=== PATIENT | female | born 2000 | race Caucasian/White ===

== ENCOUNTER 2019-05-07 08:36 | Day surgery (SDC) | payer OTHER ==
[~2019-05-07] VITALS: Ht 167.6 cm; Wt 64.9 kg
[~2019-05-07 08:36] MED LIST: BUPIVACAINE/EPIN 0.5% 30 ML VIAL As Ordered ONE; CYMB1CAP4 PO; LIDOCAINE W/EPINEPHRINE 1% 20ML VIAL As Ordered ONE; LR 1,000 ML IV ONE; YAZ1TAB PO
[2019-05-07] MEDS ORDERED: propofoL 200 MG/20 ML VIAL As Ordered ONE (10:03)
[2019-05-07] MEDS ORDERED: ROCURONIUM BROMIDE 50 MG/5 ML VIAL As Ordered ONE (10:03)
[2019-05-07] MEDS ORDERED: LIDOCAINE 2% INJ 100 MG/5 ML SDV (FOR ANES.) As Ordered ONE (10:03)
[2019-05-07] MEDS ORDERED: dexameTHASONE 4 MG/ML 1ML VIAL (J1100) As Ordered ONE (10:04)
[2019-05-07] MEDS ORDERED: ONDANSETRON 4MG/2ML VIAL (J2405) As Ordered ONE (10:04)
[2019-05-07] MEDS ORDERED: fentaNYL 100 MCG/2 ML INJECTION (J3010) As Ordered ONE (10:10)
[2019-05-07] MEDS ORDERED: MIDAZOLAM INJ 2 MG/2 ML VIAL (J2250) As Ordered ONE (10:10)
[2019-05-07] MEDS ORDERED: SUGAMMADEX SODIUM 500 MG/5 ML VIAL (BRIDION) As Ordered ONE (10:52)
[2019-05-07] MEDS: PERCOCET 5MG/325MG TAB PO PRN ×2 (11:38→12:05)
[2019-05-07] MEDS: fentaNYL 100 MCG/2 ML INJECTION (J3010) IV PRN ×4 (11:54→12:10)
[2019-05-07] MEDS ORDERED: LR 1,000 ML IV SCH ×2 (12:00→13:00)
[2019-05-07] MEDS ORDERED: METOCLOPRAMIDE INJ 10MG/2ML VIAL (J2765) IV PRN (12:00)
[2019-05-07] MEDS ORDERED: ONDANSETRON 4MG/2ML VIAL (J2405) IV PRN (12:00)
[2019-05-07] MEDS ORDERED: ACETAMINOPH W/CODEINE #3 TAB UD PO PRN (13:00)
[2019-05-07] MEDS ORDERED: KETOROLAC 30 MG/ML VIAL (J1885) IV ONE (13:00)
[2019-05-07] MEDS ORDERED: KETOROLAC 30 MG/ML VIAL (J1885) As Ordered ONE (13:03)
[2019-05-07 14:35] VITALS: BP 117/74
--- NOTE | 2019-05-07 21:48 | RO ---
DATE OF PROCEDURE: 05/07/2019 PREPROCEDURE DIAGNOSIS: Chronic tonsillitis. POSTPROCEDURE DIAGNOSIS: Chronic tonsillitis. OPERATIVE PROCEDURE: Tonsillectomy. SURGEON: Nate Gates MD SENIOR SOFTWARE MANAGER: ANESTHESIA: General. DESCRIPTION OF PROCEDURE: Under general anesthesia with the patient intubated, a Machuca-Neeraj mouth gag was inserted. The tonsillar area was infiltrated with lidocaine, epinephrine, and Marcaine. Using cautery I dissected the tonsil free from its bed on both sides. The base and apex and other areas were cauterized. The patient tolerated the procedure well. No blood loss. The patient extubated and transferred to the recovery room in excellent condition.
== END 2019-05-07 14:35 | disposition home or self-care (01) ==
LOC: M SDC 08:36
PROVIDERS: ATTEND Otolaryngology
DX: J35.01 Chronic tonsillitis (principal); F41.9 Anxiety disorder, unspecified; F32.9 Major depressive disorder, single episode, unspecified; Z79.899 Other long term (current) drug therapy; Z88.8 Allergy status to other drugs, medicaments and biological substances
CPT/HCPCS: 42826; 81025; 88302; J1100; J1885; J2250; J2405; J3010

== ENCOUNTER 2020-09-16 16:25 | Outpatient (CLI) | payer OTHER ==
[~2020-09-16] VITALS: Ht 167.6 cm; Wt 80.0 kg
[~2020-09-16 16:25] MED LIST changes: -BUPIVACAINE/EPIN 0.5% 30 ML VIAL As Ordered ONE; -LIDOCAINE W/EPINEPHRINE 1% 20ML VIAL As Ordered ONE; -LR 1,000 ML IV ONE
[2020-09-16] MEDS ORDERED: MAGN400C PO (16:48)
[2020-09-16] MEDS ORDERED: PRENTAB9 PO (16:48)
[2020-09-16 16:54] VITALS: BP 115/69
[2020-09-16 17:06] VITALS: BP 115/73
[2020-09-16 18:35] LABS: CREATININE,RANDOM URINE < 13.0 MG/DL; TOTAL PROTEIN,RANDOM URINE 6.3 MG/DL (0.0-12.0)
[2020-09-16 18:47] LABS: HEMATOCRIT 36.5 % (36.0-47.0); HEMOGLOBIN 12.1 g/dl (12.0-15.5); MEAN CORPUSCULAR HEMOGLOBIN 29.4 pg (27.0-33.0); MEAN CORPUSCULAR HGB CONC 33.2 g/dl (32.0-36.5); MEAN CORPUSCULAR VOLUME 88.6 fl (80.0-96.0); PLATELET COUNT, AUTOMATED 299 10^3/uL (150-450); RED BLOOD COUNT 4.12 10^6/uL (4.00-5.40); WHITE BLOOD COUNT 8.9 10^3/uL (4.0-10.0)
[2020-09-16 18:51] VITALS: BP 117/75
[2020-09-16 19:23] LABS: ALT/SGPT 13 U/L (12-78); BILIRUBIN,TOTAL 0.8 MG/DL (0.2-1.0); CREATININE FOR GFR 0.48 MG/DL (0.55-1.30); GLOMERULAR FILTRATION RATE > 60.0 (>60); LDH LACTATE DEHYDROGENASE 224 U/L (84-246); URIC ACID 2.6 MG/DL (2.6-6.0)
--- NOTE | 2020-09-16 19:47 | IPNPDOC ---
Text Note Date of Service The patient was seen on 09/16/20. NOTE Vital Signs Label Value Date Time Pulse 101 09/16/20 1851 Blood Pressure Assessment 117/75 (89) 09/16/20 1851 Source Automatic Cuff (NIBP) Blood Pressure Assessment 115/73 (87) 09/16/20 1706 Source Automatic Cuff (NIBP) Pulse 108 09/16/20 1706 Pulse 107 09/16/20 1654 Respiratory Rate 16 bpm 09/16/20 1654 Blood Pressure Assessment 115/69 (84) 09/16/20 1654 Source Automatic Cuff (NIBP) Patient Temperature 97.9 degrees F 09/16/20 1654 Temperature Source Temporal 09/16/20 1654 Item Value Date Time Urine Random Creatinine < 13.0 MG/DL 09/16/20 1742 Urine Random Total Protein 6.3 MG/DL 09/16/20 1742 Item Value Date Time Lactate Dehydrogenase 224 U/L 09/16/20 1836 Alanine Aminotransferase (ALT/SGPT) 13 U/L 09/16/20 1836 Aspartate Amino Transf (AST/SGOT) 14 U/L 09/16/20 1836 Total Bilirubin 0.8 MG/DL 09/16/20 1836 Uric Acid 2.6 MG/DL 09/16/20 1836 Glomerular Filtration Rate > 60.0 09/16/20 1836 Creatinine 0.48 MG/DL L 09/16/20 1836 Item Value Date Time Red Blood Count 4.12 10^6/uL 09/16/20 1836 White Blood Count 8.9 10^3/uL 09/16/20 1836 Hemoglobin 12.1 g/dl 09/16/20 1836 Hematocrit 36.5 % 09/16/20 1836 Mean Corpuscular Volume 88.6 fl 09/16/20 1836 Mean Corpuscular Hemoglobin 29.4 pg 09/16/20 1836 Mean Corpuscular Hemoglobin Concent 33.2 g/dl 09/16/20 1836 Red Cell Distribution Width 12.8 % 09/16/20 1836 Platelet Count 299 10^3/uL 09/16/20 1836 1900 HOURS PATIENT 20 YO CAME TO TRIAGE WITH MIRAD OF COMPLAINTS . RIGHT RIB PAIN ONGOING, ANXIETY DEPRESSION PICA CRAVING, GERD . PATIENT FOR ASSESSMENT RE ISSUES . LMP 02/08/20 EDC BY EARLY US 9 WEEKS 3 DAYS EDC 08/29/21. REVIEW RISK FACTORS HSV DEPRESSION /ANXIETY ON CYMBALTA PLAN NO ACUTE DISTESS BP NORMAL RIGHT RIB PAIN PISSIBLY PRESSURE INJURY GB DISEASE RECOMMEND US GB . PLANNED DISCHARGE WITH PRECAUTIONS VS,Fishbone, I+O VS, Fishbone, I+O Item Value Date Time Urine Random Creatinine < 13.0 MG/DL 09/16/20 1742 Urine Random Total Protein 6.3 MG/DL 09/16/20 1742 Laboratory Tests 09/16/20 18:36 Vital Signs Date Time Temp Pulse Resp B/P (MAP) Pulse Ox O2 Delivery O2 Flow Rate FiO2 09/16/20 18:51 101 117/75 (89) 09/16/20 16:54 97.9 16 Scar Monreal MD Sep 16, 2020 19:40
== END 2020-09-16 19:40 | disposition home or self-care (01) ==
LOC: M LDO 16:25
PROVIDERS: ATTEND Obstetrics & Gynecology
DX: O26.891 Other specified pregnancy related conditions, first trimester (principal); Z3A.09 9 weeks gestation of pregnancy; R07.81 Pleurodynia; O99.341 Other mental disorders complicating pregnancy, first trimester; F41.9 Anxiety disorder, unspecified; F32.9 Major depressive disorder, single episode, unspecified; O99.611 Diseases of the digestive system complicating pregnancy, first trimester; K21.9 Gastro-esophageal reflux disease without esophagitis; O98.511 Other viral diseases complicating pregnancy, first trimester; B00.82 Herpes simplex myelitis; Z88.8 Allergy status to other drugs, medicaments and biological substances; Z79.899 Other long term (current) drug therapy
CPT/HCPCS: 36415; 59025; 82247; 82565; 82570; 83615; 84156; 84450; 84460; 84550; 85027; G0378; G0463

== ENCOUNTER 2020-11-01 20:51 | Inpatient (IN) | payer OTHER ==
[~2020-11-01] VITALS: Ht 165.1 cm; Wt 87.3 kg
[~2020-11-01 20:51] MED LIST changes: +MAGN400C PO; +PRENTAB9 PO
[2020-11-01 21:14] VITALS: BP 137/87
[2020-11-01] MEDS ORDERED: VALA1TAB5 PO (21:20)
[2020-11-01] MEDS ORDERED: TUMS500C PO (21:20)
[2020-11-01] MEDS ORDERED: ACET-907 PO (21:20)
[2020-11-01 22:15] VITALS: BP 137/94
[2020-11-01 22:16] VITALS: BP 147/99
[2020-11-01 22:23] VITALS: BP 142/96
[2020-11-01 22:52] LABS: HEMATOCRIT 35.6 % (36.0-47.0); HEMOGLOBIN 11.9 g/dl (12.0-15.5); MEAN CORPUSCULAR HEMOGLOBIN 29.5 pg (27.0-33.0); MEAN CORPUSCULAR HGB CONC 33.4 g/dl (32.0-36.5); MEAN CORPUSCULAR VOLUME 88.3 fl (80.0-96.0); PLATELET COUNT, AUTOMATED 217 10^3/uL (150-450); RED BLOOD COUNT 4.03 10^6/uL (4.00-5.40); WHITE BLOOD COUNT 7.8 10^3/uL (4.0-10.0)
[2020-11-01 23:19] LABS: TOTAL PROTEIN,RANDOM URINE 349.5 MG/DL (0.0-12.0)
[2020-11-01 23:26] LABS: ALBUMIN 2.3 GM/DL (3.2-5.2); ALT/SGPT 20 U/L (12-78); BILIRUBIN,TOTAL 0.6 MG/DL (0.2-1.0); BLOOD UREA NITROGEN 9 MG/DL (7-18); CALCIUM LEVEL 8.9 MG/DL (8.5-10.1); CARBON DIOXIDE LEVEL 21 MEQ/L (21-32); CHLORIDE LEVEL 107 MEQ/L (98-107); CREATININE FOR GFR 0.43 MG/DL (0.55-1.30); GLOMERULAR FILTRATION RATE > 60.0 (>60); GLUCOSE, FASTING 83 MG/DL (70-100); POTASSIUM SERUM 4.3 MEQ/L (3.5-5.1); SODIUM LEVEL 136 MEQ/L (136-145); TOTAL PROTEIN 5.7 GM/DL (6.4-8.2)
[2020-11-01] MEDS ORDERED: LIDOCAINE 1% MDV 20ML VIAL INFIL PRN (23:35)
[2020-11-01] MEDS ORDERED: TRANEXAMIC ACID INJection 1,000 MG in NS 100 ML IV PRN (23:35)
[2020-11-01] MEDS ORDERED: CARBOPROST TROMETHAMINE 250 MCG/ML AMP IM PRN (23:35)
[2020-11-01] MEDS ORDERED: OXYTOCIN DRIP 30 UNITS in IV 1 EA IV PRN (23:35)
[2020-11-01] MEDS ORDERED: LR 1,000 ML IV SCH (23:35)
[2020-11-01] MEDS ORDERED: OXYTOCIN DRIP 30 UNITS in IV 1 EA IV SCH (23:35)
--- NOTE | 2020-11-01 23:57 | HPEPDOC ---
Obstetrical History & Physical General Date of Admission Nov 01, 2020 at 23:26 History of Present Illness Quincy is a 20yo at 38w1d by LMP c/w 9wk US with ADRIANO 29Aug admitted from triage after presenting with complaint of decreased movement. Pt states she does daily kick counts and noted that she only had 7 movements in a 2hr timeframe. She states that movement increased since arriving to triage, however during evaluation was noted to have an elevated BP. Labs ordered and UPC returned at 2.8. Pt denies any symptoms of preeclampsia including LONGO,vision changes, RUQ pain or dyspnea. She is also without OB complaint. She does note occasional contractions but denies LOF, VB or discharge. +GFM. Information Provided By: Patient Care Care: Good Care Dating Final EDC: Nov 14, 2020 Final EDC by: LMP Antepartum Course Diagnos(e)s 1. 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 Depression/anxiety 3. Gallstones Past Medical History Past Obstetrical History : Past Obstetrical History: Primgravida Past Medical History Medical History HSV1 with hx of genital lesions Depression/anxiety Surgical History: Tonsilectomy (2019), Other (distal first metatarsal osteotom. Lump removal - R axillae) Family History Significant Family History: Hypertension Family History HTN - mother, father, MGM, MGF, PGM Social History Social history denies tobacco, etOH or illicit drug use Marital Status: Family situation: Spouse/partner home Psychosocial History: Anxiety, Depression * Smoker: non-smoker Alcohol: Denies Drugs: denies Abuse Violence Screening Have you been hit/kicked/slapp: No Have you been sexually assault: No Imunizations Tdap status: declined Allergies Coded Allergies: nitrofurantoin (Verified Allergy, Severe, rash, skin swelling, throat swelling, hives, 04/30/19) phenazopyridine (Verified Allergy, Severe, hives, rash, swelling of skin and throat, 04/30/19) Medications Scheduled Acetaminophen (Tylenol) 325 Mg Tablet, 325 MG PO PRN Duloxetine HCl (Cymbalta) 20 Mg Capsule.dr, 40 MG PO DAILY Magnesium Oxide (Magnesium) 400 Mg Capsule, 400 MG PO DAILY for constipation No.137/Iron/Folic Acd ( Vitamin Tablet) 1 Each Tablet, 1 TAB PO DAILY Valacyclovir HCl (Valacyclovir) 1,000 Mg Tablet, 1 TAB PO DAILY Miscellaneous Medications Calcium Carbonate (Tums) 200 Mg Tab.chew, 500 MG PO Physical Examination Physical Examination GENERAL: Alert and oriented times three. BREAST: . ABDOMEN: Gravid and non-tender to touch. FETUS: Is vertex (VTX) by sterile vaginal examination (SVE), HEART RATE: Regular rate LUNGS: Normal work of breathing EXTREMITIES: No edema. No clonus. Deep tendon reflexes (DTRs) . Vital Signs/I&O Vital Signs Date Time Temp Pulse Resp B/P (MAP) Pulse Ox O2 Delivery O2 Flow Rate FiO2 11/01/20 22:23 95 16 142/96 (111) 11/01/20 21:14 98.2 Laboratory Data 24H LABS Laboratory Tests 2 11/01/20 21:48: Urine Random Creatinine 123.0, Urine Random Total Protein 349.5H 11/01/20 22:43: Nucleated Red Blood Cells % (auto) 0.0, Anion Gap 8, Glomerular Filtration Rate > 60.0, Calcium Level 8.9, Total Bilirubin 0.6, Aspartate Amino Transf (AST/SGOT) 24, Alanine Aminotransferase (ALT/SGPT) 20, Alkaline Phosphatase 308H, Total Protein 5.7L, Albumin 2.3L, Albumin/Globulin Ratio 0.7L CBC/BMP Laboratory Tests 11/01/20 22:43 Pertinent Laboratoy Data Blood Type: A+ RBC Antibody Screen: Negative HIV: Negative Hepatitis B: Negative Rapid Plasma Reagin: Nonreactive Rubella: Immune Varicella: Immune Chlamydia/Gonorrhea: Negative Group B Streptococcus: Negative Quad Screen Test: Negative Cystic Fibrosis: Negative Glucose Tolerance Test: 146 (3hr normal) Anatomy Ultrasound Placenta Location: Posterior Normal Anatomy: Yes Placenta Previa: No Vaginal Examination Dilation: 1cm (SVE performed - no active lesions noted) Effacement: 50% Station: -3 Cervical Position: Posterior Presentation: Cephalic presentation Assessment Heart Rate (FHR): 130 Variability: Moderate Accelerations: Positive Decelerations: None Tocometer Contractions: Yes Frequency: every 1-3 min. Assessment/Plan Assessment Quincy is a 20-year-old G1 para (P)0 at 38+1 weeks by LMP c/w 9wk US with ADRIANO Oct. Presents to Labor and Delivery (L&D) with decreased movement. NST reactive, however on evaluation pt noted to have mild range BP. Labs obtained with UPC ratio at 2.8 - meeting criteria for preeclampsia. Plan Admit and orient. Spiritual Advisor and consent. Diet: clears. Group B Streptococcus (GBS) negative. Speculum exam completed with no active lesions noted. Labs and intravenous (IV) per unit protocol. Counseled on cervical ripening methods, Pitocin and induction of labor (IOL). DLFB inserted without difficulty. Lactated Ringers (LR) Anticipate [normal spontaneous delivery ()]. C-S as appropriate. Labor and Delivery Counseling Counseled on risks/benefits of balloon insertion (ie: infection, inadvertent AROM), and reviewed common medication utilized during induction (cytotec, pitocin). Reviewed reasons for possible operative vs. delivery as well as risks/benefits associated with these procedures to include injury, infection, and possible need for blood transfusion in the event of signficant hemorrhage. Patient and both present during counseling and agree to proceed. All questions answered. CONNIE QUINTERO M.D. Nov 01, 2020 23:39
[2020-11-02] VITALS (60 sets, daily range): BP systolic 116–191; BP diastolic 57–108
[2020-11-02] MEDS ORDERED: PROMETHAZINE INJ 25 MG/ML VIAL (J2550) IV PRN (00:55)
[2020-11-02] MEDS ORDERED: ACETAMINOPHEN TAB 650MG DOSE (2X325MG) PO PRN (00:55)
[2020-11-02] MEDS ORDERED: BUTORPHANOL 2 MG/ML INJ (J0595) IV PRN (00:55)
[2020-11-02] MEDS ORDERED: LR 1,000 ML IV ONE (05:20)
--- NOTE | 2020-11-02 05:53 | IPNPDOC ---
Obstetrical Progress Note Date of Service Nov 02, 2020 Subjective 20yo at 38w2d by LMP c/w 9wk US with ADRIANO 29Aug. Requesting epidural for pain. [place] small gush of fluid around 0530 and light meconium noted by RN. Pt otherwise without complaint and denies LONGO, vision changes, RUQ pain or dyspnea Objective Vital Signs Date Time Temp Pulse Resp B/P (MAP) Pulse Ox O2 Delivery O2 Flow Rate FiO2 11/02/20 05:02 99.1 107 16 135/83 (100) Assessment Heart Rate (FHR): 130 Variability: Moderate Accelerations: Positive Decelerations: Late (occasional late deceleration) Heart Rate Tracing: Category I (overall cat I with intermittent episodes of Cat 2) Sterile Vaginal Examination Dilation: 4 cm Effacement (%): 70% Station: -2 Cervical Consistency: Soft Cervical Position: Posterior Postion/Presentation: Cephalic presentation Assessment and Plan Status: Reassuring Group B Streptococcus: Negative Anticipate: Vaginal Delivery Additional Comments 20yo now at 38w2d. SROM with scant fluid around 0530 this AM, light mec onium noted. Pt receiving bolus for epidural. Continue to monitor closely and anticipate vaginal delivery. BP normotensive to mild range and patient asymptomatic. Consider mag if severe features of preE noted. CONNIE QUINTERO M.D. Nov 02, 2020 05:53
[2020-11-02] MEDS ORDERED: FENTANYL 2MCG/ML ROPIVACAINE 0.2% IN 0.9% NACL 100ML IVBAG As Ordered ONE ×2 (05:56→14:28)
[2020-11-02] MEDS ORDERED: valACYclovir HCL 500 MG TAB PO ONE (06:30)
[2020-11-02] MEDS ORDERED: diphenhydrAMINE 50MG/ML VIAL (J1200) IV PRN (08:50)
[2020-11-02] MEDS ORDERED: REFRIGERATOR IV KEYS XX PRN (08:50)
[2020-11-02] MEDS ORDERED: ONDANSETRON 4MG/2ML VIAL IV PRN (08:50)
[2020-11-02] MEDS ORDERED: EPIDURAL/PCA KEYS XX PRN (08:50)
[2020-11-02] MEDS ORDERED: LACTATED RINGER'S 1000 ML IV PRN (08:50)
[2020-11-02] MEDS ORDERED: NALOXONE INJ 0.4MG/1ML VIAL (J2310 PER 1MG) IV PRN (08:50)
[2020-11-02] MEDS ORDERED: ePHEDrine SULFATE 25 MG/5 ML(5MG/ML) SYRINGE IV PRN (08:50)
[2020-11-02] MEDS ORDERED: EPIDURAL COMMENT XX SCH (08:50)
[2020-11-02] MEDS: FENTANYL/ROPIVACAINE/NACL BAG 100 ML EPIDURAL SCH ×2 (08:53→14:34)
--- NOTE | 2020-11-02 11:34 | IPNPDOC ---
Obstetrical Progress Note Date of Service Nov 02, 2020 Subjective 20 yo at 38w2d with ADRIANO of 14 NOV 2020 admitted for pre-eclampsia. She denies headache, chest pain RUQ pain, and visual changes. She is comfortable with her epidural and has been able to get some rest. She has supportive family at the bedside. Objective Vital Signs Date Time Temp Pulse Resp B/P (MAP) Pulse Ox O2 Delivery O2 Flow Rate FiO2 11/02/20 06:56 103 16 124/70 (88) 11/02/20 06:42 98.9 Pitocin at 10 mu/min Assessment Heart Rate (FHR): 125 Variability: Moderate Accelerations: Present Decelerations: Variable Tocometer Contractions: Yes Frequency: irregular (every 3-5 minutes) Sterile Vaginal Examination Dilation: 6 cm Effacement (%): 70% Station: 0 Cervical Consistency: Soft Cervical Position: Middle Postion/Presentation: Cephalic presentation Assessment and Plan Age: 20 : 1 Term: 0 Pre-term: 0 Abortions: 0 Livin Weeks & Days 38w2d Status: Reassuring Group B Streptococcus: Negative Anticipate: Vaginal Delivery BRENDA ALEXANDER CNM Nov 02, 2020 11:30
--- NOTE | 2020-11-02 12:20 | IPNPDOC ---
Obstetrical Progress Note Date of Service Nov 02, 2020 Subjective 20 yo at 38w2d with ADRIANO of 14 NOV 2020 admitted for pre-eclampsia. She remains comfortable with her epidural. She has no complaints at this time. She has supportive family at the bedside. Discussed placing internal monitors with patient and her spouse due to with deep variables to 90s with contractions with return to baseline. Objective Vital Signs Date Time Temp Pulse Resp B/P (MAP) Pulse Ox O2 Delivery O2 Flow Rate FiO2 11/02/20 06:56 103 16 124/70 (88) 11/02/20 06:42 98.9 FSE and IUPC placed without difficulty Assessment Heart Rate (FHR): 135 Variability: Moderate Accelerations: Present Decelerations: Variable Tocometer Contractions: Yes (every 2-5 minutes) Frequency: regular Sterile Vaginal Examination Dilation: 6 cm Effacement (%): 70% Station: 0 Postion/Presentation: Cephalic presentation Assessment and Plan Age: 20 : 1 Term: 0 Pre-term: 0 Abortions: 0 Livin Weeks & Days 38w2d Status: Reassuring Group B Streptococcus: Negative Anticipate: Vaginal Delivery BRENDA ALEXANDER CNM Nov 02, 2020 12:07
[2020-11-02] MEDS ORDERED: MAG Sulf (L&D) 4 GM/100 ML 4 GM in IV 1 EA IV ONE (15:05)
[2020-11-02] MEDS: MAG Sulf (OBGYN) 20GM/500ML 20,000 MG in IV 1 EA IV SCH (16:03)
[2020-11-02] MEDS ORDERED: LABETALOL 100MG/20ML VIAL IV STA (16:07)
[2020-11-02] MEDS ORDERED: ANUSOL HC CREAM 30GM TOP PRN (16:25)
[2020-11-02] MEDS ORDERED: PROMETHAZINE 25 MG TAB PO PRN (16:25)
[2020-11-02] MEDS ORDERED: DIBUCAINE 1% OINTMENT 30GM TOP PRN (16:25)
[2020-11-02] MEDS ORDERED: ACETAMINOPHEN 500 MG TAB PO PRN (16:25)
[2020-11-02] MEDS ORDERED: MEASLES,MUMPS,RUBELLA VACCINE INJ (MMR-II) (90707) SC SCH (16:25)
[2020-11-02] MEDS ORDERED: IBUPROFEN 800 MG TAB PO PRN (16:25)
[2020-11-02] MEDS ORDERED: METHYLERGONOVINE MALEATE 0.2 MG TAB PO PRN (16:25)
--- NOTE | 2020-11-02 16:41 | DNPDOC ---
[facility] Delivery Note Delivery Note Date of the procedure: 02 NOV 2020 Preoperative diagnosis: 1. 20 y/o at 38w2d 2. Induction of labor for pre-eclampsia 3. GBS negative 4. A positive 5. 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 Meconium Postoperative diagnosis: 1. 20 y/o G1 now P1 at 38w2d 2. Induction of labor for pre-eclampsia 3. GBS negative 4. A positive 5. 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 Meconium 7. Second degree perineal laceration Procedure: Delivering Provider: JORJE Hilario CNM, [facility] Risk And Assurance Manager Back-up: Dr. Sarkis Vasquez Anesthesia: Epidural EBL: 400 ml Specimens: None Findings: Live male infant weighing 8 lb 10 oz, 3910 grams with Apgars of 8 and 9 at 1 and 5 minutes respectively. Complications: Pre-eclampsia Details of the procedure: The patient presented complaining of decreased movement and was found to be pre-eclamptic. Patient was 1 cm dilated and was then admitted to L&D for induction of labor. Labor progressed with Pitocin and membranes were ruptured spontaneously for clear fluid.. The patient progressed to fully dilated and entered the second stage of labor, at which point she began to push over an intact perineum. The head was then delivered. The nuchal cord was not noted. The rest of the was delivered. The was placed on maternal abdomen and the cord was doubly clamped and cut. Cord blood was not collected and a 3 vessel cord was noted. Manual exploration of the uterus was not performed. Uterine tone was firm. Perineum was inspected and a second degree perineal laceration was found. This was repaired with 2-0 chromic. Cervical exam was normal. Rectal exam was not noted. Sponge, instrument, and needle counts were correct. The patient tolerated the procedure well and is stable in recovery. Note was written and electronically signed by: JORJE Hilario CNM, [facility] BRENDA ALEXANDER CNM Nov 02, 2020 16:35
[2020-11-02 17:03] LABS: HEMATOCRIT 36.6 % (36.0-47.0); HEMOGLOBIN 12.1 g/dl (12.0-15.5); MEAN CORPUSCULAR HEMOGLOBIN 29.2 pg (27.0-33.0); MEAN CORPUSCULAR HGB CONC 33.1 g/dl (32.0-36.5); MEAN CORPUSCULAR VOLUME 88.4 fl (80.0-96.0); PLATELET COUNT, AUTOMATED 197 10^3/uL (150-450); RED BLOOD COUNT 4.14 10^6/uL (4.00-5.40); WHITE BLOOD COUNT 17.2 10^3/uL (4.0-10.0)
[2020-11-02 17:29] LABS: ALT/SGPT 17 U/L (12-78); BILIRUBIN,TOTAL 1.1 MG/DL (0.2-1.0); CREATININE FOR GFR 0.51 MG/DL (0.55-1.30); GLOMERULAR FILTRATION RATE > 60.0 (>60); LDH LACTATE DEHYDROGENASE 277 U/L (84-246); URIC ACID 5.2 MG/DL (2.6-6.0)
[2020-11-02] MEDS: DULoxetine 30 MG CAP (CYMBALTA) PO SCH (21:08)
[2020-11-02] MEDS: DOCUSATE SODIUM 100MG CAPSULE PO SCH (21:08)
[2020-11-02] MEDS: IBUPROFEN 600MG TAB PO PRN (23:12)
[2020-11-03] VITALS (64 sets, daily range): BP systolic 97–174; BP diastolic 54–113
[2020-11-03] MEDS ORDERED: MORPHINE 4 MG/ML 1ML VIAL/SYRINGE (J2270) As Ordered ONE (02:21)
[2020-11-03] MEDS ORDERED: OXYTOCIN 30 UNITS IN 0.9% NaCl 500ML IV BAG (J2590) As Ordered ONE (02:21)
[2020-11-03] MEDS ORDERED: ceFAZolin 2 GM/D5W 50 ML IV BAG (J0690 PER 500MG) As Ordered ONE (02:30)
[2020-11-03] MEDS ORDERED: CARBOPROST TROMETHAMINE 250 MCG/ML AMP As Ordered ONE (02:38)
[2020-11-03 02:53] LABS: HEMATOCRIT 29.8 % (36.0-47.0); MEAN CORPUSCULAR HEMOGLOBIN 29.7 pg (27.0-33.0); MEAN CORPUSCULAR HGB CONC 33.9 g/dl (32.0-36.5); MEAN CORPUSCULAR VOLUME 87.6 fl (80.0-96.0); PLATELET COUNT, AUTOMATED 211 10^3/uL (150-450); WHITE BLOOD COUNT 12.7 10^3/uL (4.0-10.0)
[2020-11-03 02:55] LABS: HEMOGLOBIN 10.1 g/dl (12.0-15.5)
[2020-11-03] MEDS ORDERED: diphenhydrAMINE 50MG/ML VIAL (J1200) IV STA (02:59)
[2020-11-03 03:03] LABS: INR 1.02; PROTHROMBIN TIME 13.8 SECONDS (12.7-14.5)
[2020-11-03 03:04] LABS: PARTIAL THROMBOPLASTIN TIME 32.3 SECONDS (25.9-37.0)
--- NOTE | 2020-11-03 03:16 | IPNPDOC ---
Progress Note Date of Service: Nov 03, 2020 Day#: 1 Progress Note SUBJECT:20 y/o at 38w2d PPD1 S/P complicated by Pre e with severe features who has now been on magnesium for 12 hrs. I was called to her room this mornind for increased bleeding. on exam, patient had a lot of large clots inside the uterus, which were evacuated manually. PPH was diagnosed. she was given 2 doses of hemobate, got another 30u of pitocin, 1g of txa, 1000mcg of cytotec. Bakri ballon was also placed with 300ml. 2g of ancef was also given and will continue q8hrs while bakri is in place. patient was type and crossed for 2u. coags were also obtained. 4mg of morphine was given during the exam and bakri balloon placement. patient was also noted to have persistent severe range BP and was given 40mg of Iv Labetalol. OBJECTIVE: VITAL SIGNS: 163/100 Alert and oriented times three. Breath sounds clear to auscultation. Heart rate: tachy to 120 Abdomen: Fundus firm at U lochia, bakri balloon in place ASSESSMENT: :20 y/o at 38w2d PPD1 S/P complicated by Pre e with severe features who has now been on magnesium for 12 hrs. will transfuse 2u prbc, Coags are Normal with fibrinogen 497. . PLAN: 1. Continue mag for 24hrs, due off at 4pm on 11/03 2. Keep bakri balloon for 12hrs, then start removing 5oml every hr starting at 3pm ON 11/03 3. Encourage breast feeding and ambulation. 4. 2g of ancef q8hrs, while bakri in place 6. Continue to monitor for s/s of anemia or worsening pre e. 7. GIve IV Antihypertensive PRN VS, I&O, 24H, Fishbone Vital Signs/I&O Vital Signs Date Time Temp Pulse Resp B/P (MAP) Pulse Ox O2 Delivery O2 Flow Rate FiO2 11/03/20 01:02 114 16 133/64 (87) 11/03/20 00:02 98.8 I&O- Last 24 Hours up to 6 AM 11/03/20 05:59 Intake Total 3973.9 ml Output Total 2650 ml Balance 1323.9 ml Laboratory Data 24H LABS Laboratory Tests 2 11/02/20 16:52: Nucleated Red Blood Cells % (auto) 0.0, Glomerular Filtration Rate > 60.0, Uric Acid 5.2, Total Bilirubin 1.1#H, Aspartate Amino Transf (AST/SGOT) 21, Alanine Aminotransferase (ALT/SGPT) 17, Lactate Dehydrogenase 277H 11/03/20 02:45: Nucleated Red Blood Cells % (auto) 0.0 CBC/BMP Laboratory Tests 11/02/20 16:52 11/03/20 02:45 DICKSON LEWIS MD Nov 03, 2020 03:16
[2020-11-03 03:19] LABS: ALBUMIN 1.9 GM/DL (3.2-5.2); ALT/SGPT 15 U/L (12-78); BILIRUBIN,TOTAL 0.8 MG/DL (0.2-1.0); BLOOD UREA NITROGEN 6 MG/DL (7-18); CALCIUM LEVEL 7.6 MG/DL (8.5-10.1); CARBON DIOXIDE LEVEL 24 MEQ/L (21-32); CHLORIDE LEVEL 111 MEQ/L (98-107); CREATININE FOR GFR 0.57 MG/DL (0.55-1.30); GLOMERULAR FILTRATION RATE > 60.0 (>60); GLUCOSE, FASTING 110 MG/DL (70-100); SODIUM LEVEL 141 MEQ/L (136-145); TOTAL PROTEIN 4.7 GM/DL (6.4-8.2)
[2020-11-03] MEDS ORDERED: CARBOPROST TROMETHAMINE 250 MCG/ML AMP IM PRN (03:30)
[2020-11-03] MEDS ORDERED: OXYTOCIN INJ 10 UNITS/ML VIAL (J2590) IV ONE (03:30)
[2020-11-03] MEDS ORDERED: TRANEXAMIC ACID INJection 1,000 MG in D5W 100 ML IV ONE (03:45)
[2020-11-03] MEDS ORDERED: MORPHINE 4 MG/ML 1ML VIAL/SYRINGE (J2270) IV ONE (03:45)
[2020-11-03] MEDS ORDERED: ceFAZolin SOD 2 GM in IV 1 EA IV SCH (04:00)
[2020-11-03] MEDS ORDERED: ACETAMINOPHEN *IV* 1,000 MG in IV 1 EA IV ONE (04:00)
[2020-11-03] MEDS ORDERED: LABETALOL 100MG/20ML VIAL As Ordered ONE (04:18)
[2020-11-03] MEDS: PRENATAL VITAMINS CHEWABLE TABLET PO SCH (08:54)
[2020-11-03] MEDS: LABETALOL 100MG TAB PO SCH ×2 (08:57→21:33)
[2020-11-03] MEDS ORDERED: LOMOTIL 2.5MG/0.025MG TABLET PO SCH ×2 (09:00)
[2020-11-03] MEDS: ceFAZolin SOD 2 GM in IV 1 EA IV SCH ×2 (11:27→18:25)
[2020-11-03] MEDS: LR 1,000 ML IV SCH ×2 (11:27→22:27)
[2020-11-03] MEDS: MAG Sulf (OBGYN) 20GM/500ML 20,000 MG in IV 1 EA IV SCH ×3 (13:17→18:16)
[2020-11-03 15:51] LABS: HEMATOCRIT 34.5 % (36.0-47.0); HEMOGLOBIN 11.8 g/dl (12.0-15.5); MEAN CORPUSCULAR HEMOGLOBIN 29.9 pg (27.0-33.0); MEAN CORPUSCULAR HGB CONC 34.2 g/dl (32.0-36.5); MEAN CORPUSCULAR VOLUME 87.3 fl (80.0-96.0); PLATELET COUNT, AUTOMATED 201 10^3/uL (150-450); RED BLOOD COUNT 3.95 10^6/uL (4.00-5.40); WHITE BLOOD COUNT 15.9 10^3/uL (4.0-10.0)
[2020-11-03 16:12] LABS: ALT/SGPT 19 U/L (12-78); BILIRUBIN,TOTAL 0.9 MG/DL (0.2-1.0); CREATININE FOR GFR 0.47 MG/DL (0.55-1.30); GLOMERULAR FILTRATION RATE > 60.0 (>60); LDH LACTATE DEHYDROGENASE 402 U/L (84-246); URIC ACID 5.6 MG/DL (2.6-6.0)
--- NOTE | 2020-11-03 18:43 | IPNPDOC ---
Text Note Date of Service The patient was seen on 11/03/20. NOTE Item Value Date Time Creatinine 0.47 MG/DL L 11/03/20 1537 Glomerular Filtration Rate > 60.0 11/03/20 1537 Uric Acid 5.6 MG/DL 11/03/20 1537 Total Bilirubin 0.9 MG/DL 11/03/20 1537 Aspartate Amino Transf (AST/SGOT) 28 U/L 11/03/20 1537 Alanine Aminotransferase (ALT/SGPT) 19 U/L 11/03/20 1537 Lactate Dehydrogenase 402 U/L H 11/03/20 1537 Albumin/Globulin Ratio 0.7 L 11/03/20 0245 Albumin 1.9 GM/DL L 11/03/20 0245 Total Protein 4.7 GM/DL L 11/03/20 0245 Alkaline Phosphatase 218 U/L H 11/03/20 0245 Alanine Aminotransferase (ALT/SGPT) 15 U/L 11/03/20 0245 Aspartate Amino Transf (AST/SGOT) 24 U/L 11/03/20 0245 Total Bilirubin 0.8 MG/DL 11/03/20 0245 Calcium Level 7.6 MG/DL L 11/03/20 0245 Fasting Glucose 110 MG/DL H 11/03/20 0245 Creatinine 0.57 MG/DL 11/03/20 0245 Blood Urea Nitrogen 6 MG/DL L 11/03/20 0245 Anion Gap 6 MEQ/L L 11/03/20 0245 Carbon Dioxide Level 24 MEQ/L 11/03/20 0245 Chloride Level 111 MEQ/L H 11/03/20 0245 Sodium Level 141 MEQ/L 11/03/20 0245 Potassium Level 4.0 MEQ/L 11/03/20 0245 Sodium Level 136 MEQ/L 11/01/20 2243 Potassium Level 4.3 MEQ/L 11/01/20 2243 Chloride Level 107 MEQ/L 11/01/20 2243 Carbon Dioxide Level 21 MEQ/L 11/01/203 Anion Gap 8 MEQ/L 11/01/20 2243 Blood Urea Nitrogen 9 MG/DL 11/01/20 2243 Creatinine 0.43 MG/DL L 11/01/20 2243 Glomerular Filtration Rate > 60.0 11/01/20 2243 Fasting Glucose 83 MG/DL 11/01/20 2243 Calcium Level 8.9 MG/DL 11/01/202242 Total Bilirubin 0.6 MG/DL 11/01/202242 Aspartate Amino Transf (AST/SGOT) 24 U/L 11/01/202242 Alanine Aminotransferase (ALT/SGPT) 20 U/L 11/01/202242 Alkaline Phosphatase 308 U/L H 11/01/202242 Total Protein 5.7 GM/DL L 11/01/202242 Albumin 2.3 GM/DL L 11/01/202242 Albumin/Globulin Ratio 0.7 L 11/01/202242 Vital Signs Label Value Date Time Blood Pressure Assessment 134/102 (113) 11/03/20 0325 Source Automatic Cuff (NIBP) Blood Pressure Assessment 134/102 11/03/20 0324 Blood Pressure Assessment 125/93 (104) 11/03/20 0317 Source Automatic Cuff (NIBP) Blood Pressure Assessment 169/107 (127) 11/03/20 0307 Source Automatic Cuff (NIBP) Blood Pressure Assessment 174/104 (127) 11/03/20 0257 Source Automatic Cuff (NIBP) Blood Pressure Assessment 163/100 (121) 11/03/20 0247 Source Automatic Cuff (NIBP) Blood Pressure Assessment 156/102 (120) 11/03/20 0230 Source Automatic Cuff (NIBP) Blood Pressure Assessment 142/96 (111) 11/03/20 0224 Source Automatic Cuff (NIBP) Blood Pressure Assessment 161/79 (106) 11/03/20 0215 Source Automatic Cuff (NIBP) Blood Pressure Assessment 165/90 (115) 11/03/20 0202 Source Automatic Cuff (NIBP) Blood Pressure Assessment 133/64 (87) 11/03/20 0102 Source Automatic Cuff (NIBP) Blood Pressure Assessment 136/79 (98) 11/03/20 0002 Source Automatic Cuff (NIBP) Blood Pressure Assessment 140/90 (107) 11/02/20 2306 Source Automatic Cuff (NIBP) Blood Pressure Assessment 145/86 (105) 11/02/202201 Source Automatic Cuff (NIBP) Blood Pressure Assessment 137/75 (95) 11/02/202116 Source Automatic Cuff (NIBP) Blood Pressure Assessment 137/75 (95) 11/02/202116 Blood Pressure Assessment 141/89 (106) 11/02/202001 Blood Pressure Assessment 141/89 (106) 11/02/20 2002 Source Automatic Cuff (NIBP) Blood Pressure Assessment 148/90 (109) 11/02/20 1902 Blood Pressure Assessment 148/90 (109) 11/02/20 1902 Source Automatic Cuff (NIBP) Blood Pressure Assessment 129/69 (89) 11/02/20 1801 Source Automatic Cuff (NIBP) Blood Pressure Assessment 141/75 (97) 11/02/20 1722 Source Automatic Cuff (NIBP) Blood Pressure Assessment 142/88 (106) 11/02/20 1639 Source Automatic Cuff (NIBP) Blood Pressure Assessment 144/90 (108) 11/02/20 1629 Source Automatic Cuff (NIBP) Blood Pressure Assessment 168/94 11/02/20 1625 Blood Pressure Assessment 168/94 (118) 11/02/20 1615 Source Automatic Cuff (NIBP) Blood Pressure Assessment 162/93 (116) 11/02/20 1605 Source Automatic Cuff (NIBP) Blood Pressure Assessment 161/108 (125) 11/02/20 1600 Source Automatic Cuff (NIBP) Blood Pressure Assessment 139/74 (95) 11/02/20 1544 Source Automatic Cuff (NIBP) Blood Pressure Assessment 139/73 (95) 11/02/20 1541 Source Automatic Cuff (NIBP) Blood Pressure Assessment 147/84 (105) 11/02/20 1525 Source Automatic Cuff (NIBP) Blood Pressure Assessment 142/89 (106) 11/02/20 1452 Source Automatic Cuff (NIBP) Blood Pressure Assessment 191/105 (133) 11/02/20 1446 Source Automatic Cuff (NIBP) Blood Pressure Assessment 175/99 (124) 11/02/20 1442 Source Automatic Cuff (NIBP) Blood Pressure Assessment 143/98 (113) 11/02/20 1359 Source Automatic Cuff (NIBP) Blood Pressure Assessment 172/107 (128) 11/02/20 1429 Source Automatic Cuff (NIBP) Blood Pressure Assessment 134/73 (93) 11/02/20 1328 Source Automatic Cuff (NIBP) Blood Pressure Assessment 147/79 (101) 11/02/20 1259 Source Automatic Cuff (NIBP) Blood Pressure Assessment 134/68 (90) 11/02/20 1229 Source Automatic Cuff (NIBP) Blood Pressure Assessment 141/72 (95) 11/02/20 1159 Source Automatic Cuff (NIBP) Blood Pressure Assessment 130/80 (97) 11/02/20 1129 Source Automatic Cuff (NIBP) Blood Pressure Assessment 141/69 (93) 11/02/20 1058 Source Automatic Cuff (NIBP) Blood Pressure Assessment 125/64 (84) 11/02/20 1029 Source Automatic Cuff (NIBP) Blood Pressure Assessment 142/61 (88) 11/02/20 0958 Source Automatic Cuff (NIBP) Blood Pressure Assessment 121/59 (79) 11/02/20 0929 Source Automatic Cuff (NIBP) Blood Pressure Assessment 116/57 (76) 11/02/20 0859 Source Automatic Cuff (NIBP) Blood Pressure Assessment 116/63 (80) 11/02/20 0828 Source Automatic Cuff (NIBP) Blood Pressure Assessment 120/73 (89) 11/02/20 0758 Source Automatic Cuff (NIBP) Blood Pressure Assessment 124/74 (91) 11/02/20 0741 Source Automatic Cuff (NIBP) Blood Pressure Assessment 129/74 (92) 11/02/20 0737 Source Automatic Cuff (NIBP) Blood Pressure Assessment 128/68 (88) 11/02/20 0732 Source Automatic Cuff (NIBP) Item Value Date Time White Blood Count 15.9 10^3/uL H 11/03/20 1537 Red Blood Count 3.95 10^6/uL L 11/03/20 1537 Hemoglobin 11.8 g/dl L 11/03/20 1537 Hematocrit 34.5 % L 11/03/20 1537 Mean Corpuscular Volume 87.3 fl 11/03/20 1537 Mean Corpuscular Hemoglobin 29.9 pg 11/03/20 1537 Mean Corpuscular Hemoglobin Concent 34.2 g/dl 11/03/20 1537 Red Cell Distribution Width 14.4 % 11/03/20 1537 Platelet Count 201 10^3/uL 11/03/20 1537 Platelet Count 211 10^3/uL 11/03/20 0245 Red Cell Distribution Width 14.0 % 11/03/20 0245 Mean Corpuscular Hemoglobin Concent 33.9 g/dl 11/03/20 0245 Mean Corpuscular Hemoglobin 29.7 pg 11/03/20 0245 Mean Corpuscular Volume 87.6 fl 11/03/20 0245 Hematocrit 29.8 % L 11/03/20 0245 Hemoglobin 10.1 g/dl L # 11/03/20 0245 Red Blood Count 3.40 10^6/uL L 11/03/20 0245 White Blood Count 12.7 10^3/uL H 11/03/20 0245 White Blood Count 17.2 10^3/uL H 11/02/20 1652 Red Blood Count 4.14 10^6/uL 11/02/20 1652 Hemoglobin 12.1 g/dl 11/02/20 1652 Hematocrit 36.6 % 11/02/20 1652 Mean Corpuscular Volume 88.4 fl 11/02/20 1652 Mean Corpuscular Hemoglobin 29.2 pg 11/02/20 1652 Mean Corpuscular Hemoglobin Concent 33.1 g/dl 11/02/20 1652 Red Cell Distribution Width 13.9 % 11/02/20 1652 Platelet Count 197 10^3/uL 11/02/20 1652 Platelet Count 217 10^3/uL 11/01/20 2243 Red Cell Distribution Width 13.7 % 11/01/20 2243 Mean Corpuscular Hemoglobin Concent 33.4 g/dl 11/01/20 2243 Mean Corpuscular Hemoglobin 29.5 pg 11/01/20 2243 Mean Corpuscular Volume 88.3 fl 11/01/20 2243 Hematocrit 35.6 % L 11/01/20 2243 Hemoglobin 11.9 g/dl L 11/01/20 2243 Red Blood Count 4.03 10^6/uL 11/01/20 2243 White Blood Count 7.8 10^3/uL 11/01/20 2243 11/03/20 1800 hr review status post deliver . 20 yo 38.1weeks admitted for decreased movement and srom meconium stained. history precipitate delivery and associated severe range blood pressure and grade 3 pph with whole regimen of medication. presently patient stable blood pressure, minimal blood from bakri balloon, review pedal edema to knees hyperreflexic 1 beat of clonus vulvar edema orientated . plan of care to restart mgso4 continue antibiotics remove uterine balloon maintain Sweet in and out redo labs at midnight continue labetalol VS,Fishbone, I+O VS, Fishbone, I+O Laboratory Tests 11/03/20 02:45 11/03/20 15:37 Vital Signs Date Time Temp Pulse Resp B/P (MAP) Pulse Ox O2 Delivery O2 Flow Rate FiO2 11/03/20 16:19 98.1 88 18 109/55 (73) 99 Room Air I&O- Last 24 Hours up to 6 AM 11/03/20 06:00 Intake Total 5473.9 ml Output Total 5330 ml Balance 143.9 ml Scar Monreal MD Nov 03, 2020 18:35
[2020-11-03] MEDS: DOCUSATE SODIUM 100MG CAPSULE PO SCH ×2 (19:44→19:45)
[2020-11-03] MEDS: ACETAMINOPHEN TAB 650MG DOSE (2X325MG) PO PRN (19:49)
[2020-11-03] MEDS: DULoxetine 30 MG CAP (CYMBALTA) PO SCH (21:33)
[2020-11-03] MEDS: IBUPROFEN 600MG TAB PO PRN (21:33)
[2020-11-03] MEDS ORDERED: OXYTOCIN INJ 10 UNITS/ML VIAL (J2590) As Ordered ONE (22:05)
[2020-11-04] VITALS (15 sets, daily range): BP systolic 92–147; BP diastolic 51–83
[2020-11-04] MEDS: ACETAMINOPHEN TAB 650MG DOSE (2X325MG) PO PRN ×2 (00:19→06:30)
[2020-11-04 00:37] LABS: HEMATOCRIT 27.9 % (36.0-47.0); MEAN CORPUSCULAR HEMOGLOBIN 29.8 pg (27.0-33.0); MEAN CORPUSCULAR HGB CONC 34.4 g/dl (32.0-36.5); MEAN CORPUSCULAR VOLUME 86.6 fl (80.0-96.0); PLATELET COUNT, AUTOMATED 224 10^3/uL (150-450); RED BLOOD COUNT 3.22 10^6/uL (4.00-5.40); WHITE BLOOD COUNT 14.2 10^3/uL (4.0-10.0)
[2020-11-04 00:40] LABS: HEMOGLOBIN 9.6 g/dl (12.0-15.5)
[2020-11-04 01:10] LABS: ALT/SGPT 16 U/L (12-78); BILIRUBIN,TOTAL 0.6 MG/DL (0.2-1.0); CREATININE FOR GFR 0.44 MG/DL (0.55-1.30); GLOMERULAR FILTRATION RATE > 60.0 (>60); LDH LACTATE DEHYDROGENASE 318 U/L (84-246); MAGNESIUM LEVEL 5.3 MG/DL (1.8-2.4); URIC ACID 6.1 MG/DL (2.6-6.0)
[2020-11-04] MEDS: ceFAZolin SOD 2 GM in IV 1 EA IV SCH (03:12)
[2020-11-04] MEDS: IBUPROFEN 600MG TAB PO PRN (03:37)
[2020-11-04] MEDS: MAG Sulf (OBGYN) 20GM/500ML 20,000 MG in IV 1 EA IV SCH ×2 (04:27→06:09)
--- NOTE | 2020-11-04 06:11 | IPNPDOC ---
Text Note Date of Service The patient was seen on 11/04/20. NOTE Item Value Date Time Iv w/MAG Sulf (OBGYN) 20GM/500ML (PHA) In Process 11/03/20 1754 White Blood Count 14.2 10^3/uL H 11/04/20 0003 Red Blood Count 3.22 10^6/uL L 11/04/20 0003 Hemoglobin 9.6 g/dl L # 11/04/20 0003 Hematocrit 27.9 % L 11/04/20 0003 Mean Corpuscular Volume 86.6 fl 11/04/20 0003 Mean Corpuscular Hemoglobin 29.8 pg 11/04/20 0003 Mean Corpuscular Hemoglobin Concent 34.4 g/dl 11/04/20 0003 Red Cell Distribution Width 14.6 % H 11/04/20 0003 Platelet Count 224 10^3/uL 11/04/20 0003 11/05/19 0600 REVIEW POST PRE E AND PPH DUE TO UTERINE ATONY. BP STABILIZED TO NORMAL BP, DIURESIS 2900 ML OVER 12 HOURS REFLEXES NORMAL UPPER ARM LOWER STILL BRISK NO CLONUS, EDEMA RESOLVING, LABIAL SWELLING REDUCED. PLAN OF CARE STOP ANTIBIOTICS, REDUCE MGSO4 TO 1 GRAM MAINTAIN CRABTREE AMBULATE TODAY . VS,Fishbone, I+O VS, Fishbone, I+O Item Value Date Time Prothrombin Time 13.8 SECONDS 11/03/20 0245 Prothromb Time International Ratio 1.02 11/03/20 0245 Activated Partial Thromboplast Time 32.3 SECONDS 11/03/20 0245 Fibrinogen 497 MG/DL H 11/03/20 0245 Item Value Date Time Lactate Dehydrogenase 318 U/L H 11/04/20 0003 Alanine Aminotransferase (ALT/SGPT) 16 U/L 11/04/20 0003 Aspartate Amino Transf (AST/SGOT) 22 U/L 11/04/20 0003 Total Bilirubin 0.6 MG/DL 11/04/20 0003 Magnesium Level 5.3 MG/DL *H 11/04/20 0003 Uric Acid 6.1 MG/DL H 11/04/20 0003 Glomerular Filtration Rate > 60.0 11/04/20 0003 Creatinine 0.44 MG/DL L 11/04/20 0003 Laboratory Tests 11/03/20 15:37 11/04/20 00:03 Vital Signs Date Time Temp Pulse Resp B/P (MAP) Pulse Ox O2 Delivery O2 Flow Rate FiO2 11/04/20 03:54 97.5 80 16 92/51 (65) 96 11/03/20 19:25 Room Air I&O- Last 24 Hours up to 6 AM 11/04/20 05:59 Intake Total 2974.4 ml Output Total 7045 ml Balance -4070.6 ml Scar Monreal MD Nov 04, 2020 06:08
[2020-11-04] MEDS: DOCUSATE SODIUM 100MG CAPSULE PO SCH ×2 (09:00→21:00)
[2020-11-04] MEDS: LABETALOL 100MG TAB PO SCH ×2 (09:00→21:00)
[2020-11-04] MEDS: PRENATAL VITAMINS CHEWABLE TABLET PO SCH (09:04)
[2020-11-04] MEDS: LR 1,000 ML IV SCH (09:43)
[2020-11-04] MEDS: DULoxetine 30 MG CAP (CYMBALTA) PO SCH (21:00)
[2020-11-05] VITALS (7 sets, daily range): BP systolic 127–142; BP diastolic 72–97
--- NOTE | 2020-11-05 06:26 | IPNPDOC ---
Progress Note Date of Service: Nov 05, 2020 Day#: 3 Progress Note Ms. Fishman is a 20yo PPD3 s/p c/b pre-e with SF c/w Mg x2 rounds and IV antihypertensives. Also c/b PPH requiring 2U PRBC, manual evacuation of clot, hemabate x2, pitocin, TXA, cytotec, and a bakri ballooon. She was on ancef while in place and the bakri balloon has since been removed. She has been ambulating, voiding spontaneously without issue and tolerating regular diet. Breast feeding without issue. Reports lochia is less than a normal period]. Patient is ambulating well. [Reports some cramping with . Denies any pain. Voiding and stooling without difficulty]. OBJECTIVE: VITAL SIGNS: Within normal limits, afebrile. Alert and oriented times three. No increased WOB. Heart rate: non-tachycardic Abdomen: Fundus firm at U-2. Soft, NTTP. [Minimal] lochia. DTRs 2+ in BL LE, no clonus, neg homans, no pedal edema Ms. Fishman is a 20yo PPD3 s/p c/b pre-e with SF c/w Mg x2 rounds and IV antihypertensives. Currently on labetalol 100mg BID (which has been held for low BP). Also c/b PPH requiring 2U PRBC, manual evacuation of clot, hemabate x2, pitocin, TXA, cytotec, and a bakri ballooon. She was on ancef while in place and the bakri balloon has since been removed. She has been normoteisve to mild range, afebrile, hemodynamically stable with no evidence of infection, scant vaginal bleeding. She has been diuresing well. PLAN: 1. Plan for 24 hours of monitoring after magnesium before discharge to home 2. Tylenol and Motrin for pain. oxycodone for breakthrough 3. Encourage breast feeding and ambulation. 4. Routine PP visit in 72h, 7d, 2wk, and 6 weeks in clinic. 5. Follow up on AM labs VS, I&O, 24H, Fishbone Vital Signs/I&O Vital Signs Date Time Temp Pulse Resp B/P (MAP) Pulse Ox O2 Delivery O2 Flow Rate FiO2 11/05/20 06:00 98.4 86 17 131/72 (91) 96 Room Air l I&O- Last 24 Hours up to 6 AM 11/05/20 05:59 Intake Total 2790.7 ml Output Total 3150 ml Balance -359.3 ml MARKELL BARAJAS DO Nov 05, 2020 06:26
[2020-11-05] MEDS: PRENATAL VITAMINS CHEWABLE TABLET PO SCH (08:21)
[2020-11-05] MEDS: DOCUSATE SODIUM 100MG CAPSULE PO SCH ×2 (08:21→20:14)
[2020-11-05] MEDS: LABETALOL 100MG TAB PO SCH ×2 (08:22→20:14)
--- NOTE | 2020-11-05 18:55 | IPN ---
PROGRESS NOTE DATE: 11/03/2020 This patient requested circumcision of her male . After discussing risks and benefits of circumcision, the medical, the nonmedical indications, the penile block and aftercare, expressed understanding of penile block aftercare and bleeding, signed the consent form. All questions were answered. Twenty minute discussion. We await clearance by the airport shuttle driver. cc: Luci Tineo OB
[2020-11-05] MEDS: DULoxetine 30 MG CAP (CYMBALTA) PO SCH (20:15)
[2020-11-06 02:24] VITALS: BP 151/84
[2020-11-06 06:53] VITALS: BP 136/90
--- NOTE | 2020-11-06 07:55 | OBDS ---
[facility] Obstetrical Discharge Sum. Obstetrical Discharge Summary Date: Nov 06, 2020 Labor Patient admitted to labor and delivery after presenting to triage with findings of preeclampsia on lab evaluation. Her intrapartum course was complicated by development of severe features requiring magnesium and PO antihypertensives. course was complicated by hemorrhage requiring bakri balloon and blood transfusion. See course below - Date of the procedure: 02 NOV 2020 Preoperative diagnosis: 1. 20 y/o at 38w2d 2. Induction of labor for pre-eclampsia 3. GBS negative 4. A positive 5. 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 Meconium Postoperative diagnosis: 1. 20 y/o G1 now P1 at 38w2d 2. Induction of labor for pre-eclampsia 3. GBS negative 4. A positive 5. 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 Meconium 7. Second degree perineal laceration Procedure: Delivering Provider: Sully Corbett, JORJE, NORAH, TOY- Floor Tech Back-up: Dr. Sarkis Vasquez Anesthesia: Epidural EBL: 400 ml Specimens: None Findings: Live male weighing 8 lb 10 oz, 3910 grams with Apgars of 8 and 9 at 1 and 5 minutes respectively. Complications: Pre-eclampsia Details of the procedure: The patient presented complaining of decreased movement and was found to be pre-eclamptic. Patient was 1 cm dilated and was then admitted to L&D for induction of labor. Labor progressed with Pitocin and membranes were ruptured spontaneously for clear fluid.. The patient progressed to fully dilated and entered the second stage of labor, at which point she began to push over an intact perineum. The head was then delivered. The nuchal cord was not noted. The rest of the infant was delivered. The infant was placed on maternal abdomen and the cord was doubly clamped and cut. Cord blood was not collected and a 3 vessel cord was noted. Manual exploration of the uterus was not performed. Uterine tone was firm. Perineum was inspected and a second degree perineal laceration was found. This was repaired with 2-0 chromic. Cervical exam was normal. Rectal exam was not noted. Sponge, instrument, and needle counts were correct. The patient tolerated the procedure well and is stable in recovery. Delivery Day of discharge note: Ms. Fishman is a 20yo PPD4 s/p c/b pre-e with SF c/w Mg x2 rounds and IV antihypertensives. Also c/b PPH requiring 2U PRBC, manual evacuation of clot, hemabate x2, pitocin, TXA, cytotec, and a bakri ballooon. She was on ancef while in place and the bakri balloon has since been removed. She has been ambulating, voiding spontaneously without issue and tolerating regular diet. Breast feeding without issue. Reports lochia is less than a normal period. OBJECTIVE: VITAL SIGNS: Within normal limits, afebrile. Alert and oriented times three. No increased WOB. Heart rate: non-tachycardic Abdomen: Fundus firm at U-2. Soft, NTTP. DTRs 2+ in BL LE, no clonus, neg homans, no pedal edema Vital Signs Date Time Temp Pulse Resp B/P (MAP) Pulse Ox O2 Delivery O2 Flow Rate FiO2 11/06/20 06:53 98.9 89 18 136/90 (105) 99 Room Air 11/06/20 02:24 98.3 89 17 151/84 (106) 99 Room Air 11/05/20 21:24 99.2 77 18 141/89 (106) 100 Room Air 11/05/20 18:00 98.5 79 16 142/97 (112) 100 Room Air 11/05/20 14:00 97.5 82 16 132/78 (96) 97 Room Air 11/05/20 10:00 97.6 92 16 132/85 (101) 97 Room Air 11/05/20 08:22 84 127/74 Ms. Fishman is a 20yo PPD4 s/p c/b pre-e with SF c/w Mg x2 rounds and IV antihypertensives. Currently on labetalol 100mg BID (which has been held for low BP). Also c/b PPH requiring 2U PRBC, manual evacuation of clot, hemabate x2, pitocin, TXA, cytotec, and a bakri ballooon. She was on ancef while in place and the bakri balloon has since been removed. She has been normoteisve to mild range, afebrile, hemodynamically stable with no evidence of infection, scant vaginal bleeding. She has been diuresing well. PLAN: 1. Plan for discharge to home today 2. Tylenol and Motrin for pain. 3. Encourage breast feeding and ambulation. 4. Routine PP visit in, 7d, and 6 weeks in clinic. 5.Return precautions provided A/P, Post Course List any complications Admission diagnosis: preeclampsia without severe features at term. Discharge diagnosis: preeclampsia with severe features, uncomplicated vaginal delivery, delayed hemorrhage requiring blood transfusion Condition at Discharge: stable Discharge Instructions: home Activity: No heavy lifting and strict pelvic rest [id number] Diet: regular Medications: tylenol and motrin Follow-up: BP check in 1 week and call to schedule 6wk PP visit Other: Return immediately if developing signs/symptoms of preeclampsia or infection. CONNIE QUINTERO M.D. Nov 06, 2020 07:55
[2020-11-06 10:00] VITALS: BP 133/87
[2020-11-06] MEDS: DOCUSATE SODIUM 100MG CAPSULE PO SCH (10:05)
[2020-11-06] MEDS: PRENATAL VITAMINS CHEWABLE TABLET PO SCH (10:05)
[2020-11-06] MEDS: LABETALOL 100MG TAB PO SCH (10:05)
== END 2020-11-06 13:48 | disposition home or self-care (01) | DRG 806 ==
LOC: M LDO 20:51 → M LDI 23:26 → M OBS 11-04 17:15
PROVIDERS: ADMIT Obstetrics & Gynecology; ATTEND Registered Nurse Maternal Newborn
PROC: 10E0XZZ Delivery of Products of Conception, External Approach (ICD-10-PCS; principal; 2020-11-01)
PROC: 0KQM0ZZ Repair Perineum Muscle, Open Approach (ICD-10-PCS; 2020-11-01)
PROC: 3E033VJ Introduction of Other Hormone into Peripheral Vein, Percutaneous Approach (ICD-10-PCS; 2020-11-01)
PROC: 30233N1 Transfusion of Nonautologous Red Blood Cells into Peripheral Vein, Percutaneous Approach (ICD-10-PCS; 2020-11-02)
DX: O14.14 Severe pre-eclampsia complicating childbirth (principal); Z37.0 Single live birth; O98.32 Other infections with a predominantly sexual mode of transmission complicating childbirth; Z3A.38 38 weeks gestation of pregnancy; A60.09 Herpesviral infection of other urogenital tract; O70.1 Second degree perineal laceration during delivery; O77.0 Labor and delivery complicated by meconium in amniotic fluid; O72.1 Other immediate postpartum hemorrhage

== ENCOUNTER 2020-12-05 19:15 | Emergency (ER) | payer OTHER ==
[~2020-12-05] VITALS: Ht 167.6 cm; Wt 77.1 kg
[~2020-12-05 19:15] MED LIST changes: +ACET-907 PO; +TUMS500C PO; +VALA1TAB5 PO
[2020-12-05] MEDS ORDERED: ACETAMINOPHEN 500 MG TAB PO ONE (20:45)
[2020-12-05 21:19] LABS: BASO # 0.1 10^3/uL (0.0-0.2); BASO % 0.3 % (0.0-1.0); EOS # 0.1 10^3/uL (0.0-0.5); EOS % 0.6 % (0.0-3.0); HEMATOCRIT 39.5 % (36.0-47.0); HEMOGLOBIN 12.9 g/dl (12.0-15.5); LYMPH # 2.1 10^3/uL (1.5-5.0); LYMPH % 14.7 % (24.0-44.0); MEAN CORPUSCULAR HEMOGLOBIN 29.3 pg (27.0-33.0); MEAN CORPUSCULAR HGB CONC 32.7 g/dl (32.0-36.5); MEAN CORPUSCULAR VOLUME 89.6 fl (80.0-96.0); MONO # 0.6 10^3/uL (0.0-0.8); MONO % 4.1 % (2.0-8.0); NEUTROPHILS # 11.4 10^3/uL (1.5-8.5); NEUTROPHILS % 79.9 % (36.0-66.0); PLATELET COUNT, AUTOMATED 350 10^3/uL (150-450); RED BLOOD COUNT 4.41 10^6/uL (4.00-5.40); WHITE BLOOD COUNT 14.3 10^3/uL (4.0-10.0)
[2020-12-05] MEDS ORDERED: ISOVUE-370 76% 100ML VIAL As Ordered ONE (21:27)
[2020-12-05 21:29] LABS: INR 0.95; PROTHROMBIN TIME 13.1 SECONDS (12.7-14.5)
[2020-12-05 21:53] LABS: APPEARANCE, URINE CLEAR (CLEAR); BILIRUBIN, URINE AUTO NEGATIVE (NEGATIVE); BLOOD, URINE BLOOD 2+ (NEGATIVE); COLOR, URINE YELLOW (YELLOW); GLUCOSE, URINE (UA) AUTO NEGATIVE (NEGATIVE); KETONE, URINE AUTO NEGATIVE (NEGATIVE); LEUKOCYTE ESTERASE, URINE AUTO NEGATIVE (NEGATIVE); NITRITE, URINE AUTO NEGATIVE (NEGATIVE); PROTEIN, URINE AUTO NEGATIVE (NEGATIVE); SPECIFIC GRAVITY URINE AUTO 1.005 (1.002-1.035); UROBILINOGEN, URINE AUTO 0.2 mg/dL (0.0-2.0)
[2020-12-05 21:58] LABS: BACTERIA, URINE AUTO NEGATIVE (NEGATIVE); RBC, URINE AUTO 23 /HPF (0-3); SQUAMOUS EPITHELIAL CELL UR AU 0 /HPF (0-6); WBC, URINE AUTO 2 /HPF (0-3)
[2020-12-05 22:22] LABS: ALBUMIN 3.8 GM/DL (3.2-5.2); ALT/SGPT 122 U/L (12-78); BILIRUBIN,DIRECT 0.2 MG/DL (0.0-0.2); BILIRUBIN,TOTAL 0.9 MG/DL (0.2-1.0); CK-MB VALUE MASS < 1.0 NG/ML (<3.6); CPK CREATINE PHOSPHOKINASE 101 U/L (26-192); LIPASE 163 U/L (73-393); MB/CK RELATIVE INDEX 0.99 (< OR =4); NT-PRO BNP 12 PG/ML (<125); THYROXINE (T4) 8.2 UG/DL (4.5-12.0); TOTAL PROTEIN 7.5 GM/DL (6.4-8.2); TROPONIN I < 0.02 NG/ML (< 0.10)
--- NOTE | 2020-12-05 23:07 | REPVR ---
PROCEDURE INFORMATION: Exam: XR Complete Acute Abdomen Series Including Chest Exam date and time: 12/05/2020 10:04 PM Age: 20 years old Clinical indication: Abdominal pain; Acute TECHNIQUE: Imaging protocol: XR complete acute abdomen series, including 2 or more views of the abdomen and a single view chest. COMPARISON: No relevant prior studies available. FINDINGS: Lungs: Unremarkable. No consolidation. No pulmonary edema. Pleural spaces: No pleural effusion. No pneumothorax. Heart/Mediastinum: Unremarkable. No cardiomegaly. Gastrointestinal tract: The stomach is distended with fluid and gas. There is a mild to moderate amount of stool in the colon. No dilated loops of bowel are seen. Intraperitoneal space: No free air is identified. Bones/joints: There is a mild levoscoliosis at the thoracolumbar junction. Soft tissues: Unremarkable. IMPRESSION: No acute findings. Electronically signed by: Ivan Villegas On 12/05/2020 23:07:11 PM
[2020-12-06] MEDS ORDERED: MORPHINE 4 MG/ML 1ML VIAL/SYRINGE (J2270) IV ONE
[2020-12-06] MEDS ORDERED: ONDANSETRON 4MG/2ML VIAL IV ONE
--- NOTE | 2020-12-06 00:57 | REPVR ---
PROCEDURE INFORMATION: Exam: US Abdomen, Limited; Right Upper Quadrant Exam date and time: 12/06/2020 12:39 AM Age: 20 years old Clinical indication: Epigastric abdominal pain, elevated liver function tests, and a history of gallstones. TECHNIQUE: Imaging protocol: US abdomen. Real time ultrasound with image documentation. Limited exam focused on the right upper quadrant. COMPARISON: CR Abdomen,Flat Upright,PA CHEST 12/05/2020 9:39 PM FINDINGS: Liver: The echogenicity of the liver is within normal limits. No liver lesion is identified from the images obtained. The contour of the liver is smooth. Gallbladder: There are several calculi in the gallbladder. No gallbladder wall thickening or pericholecystic fluid is noted. No sonographic Shin's sign was reported by the instructional design technologist. Common bile duct: The common bile duct is normal in caliber and at the level of the ritika hepatis measures 5 mm. Pancreas: The imaged portion of the pancreas is unremarkable. Right kidney: The right kidney is normal in appearance and measures 11 cm in length. There is no renal cortical thinning. The renal cortical echogenicity is within normal limits. No renal lesion is seen. There is no hydronephrosis. No obvious stones are seen in the renal collecting system. Intraperitoneal space: No free fluid is seen from the images obtained. IMPRESSION: Cholelithiasis without sonographic evidence for acute cholecystitis. Electronically signed by: Ivan Villegas On 12/06/2020 00:56:46 AM
[2020-12-06 01:31] LABS: CK-MB VALUE MASS < 1.0 NG/ML (<3.6); CPK CREATINE PHOSPHOKINASE 59 U/L (26-192); MB/CK RELATIVE INDEX 1.69 (< OR =4); TROPONIN I < 0.02 NG/ML (< 0.10)
--- NOTE | 2020-12-06 02:05 | REPVR ---
PROCEDURE INFORMATION: Exam: CTA Chest With Contrast Exam date and time: 12/05/2020 10:17 PM Age: 20 years old Clinical indication: Chest wall pain; Additional info: R/O pe, cp, SOB, pleuritic pain, 5 wks post TECHNIQUE: Imaging protocol: Computed tomographic angiography of the chest with contrast. 3D rendering (Not supervised by radiologist): MIP and/or 3D reconstructed images were created by the technologist. Radiation optimization: All CT scans at this facility use at least one of these dose optimization techniques: automated exposure control; mA and/or kV adjustment per patient size (includes targeted exams where dose is matched to clinical indication); or iterative reconstruction. Contrast material: ISO 370; Contrast volume: 75 ml; Contrast route: INTRAVENOUS (IV); COMPARISON: CR Abdomen,Flat Upright,PA CHEST 12/05/2020 9:39 PM FINDINGS: Pulmonary arteries: There is no pulmonary embolism in the main or lobar pulmonary arteries. The timing of the contrast bolus was suboptimal for the assessment of the segmental and subsegmental pulmonary arteries, which are poorly opacified. Aorta: The thoracic aorta is intact and patent. There is no thoracic aortic aneurysm, pseudoaneurysm, penetrating atherosclerotic ulcer, intramural hematoma, or dissection. Great vessels off aortic arch: The brachiocephalic artery, imaged proximal portions of the common carotid arteries, imaged proximal portions of the vertebral arteries, and subclavian arteries are intact. No stenosis or occlusion of these vessels is noted. Trachea: Normal. Bronchial tree: Normal. Lungs: The lungs are clear. There is no lung consolidation, pulmonary infarct, or mass. No emphysematous changes or interstitial lung disease is noted. Pleural spaces: Normal. No pneumothorax or pleural effusion. Heart: No cardiomegaly. The ratio of the diameter of the right ventricle to the diameter of the left ventricle measures less than 1, which is within normal limits and there is no CT evidence for a right ventricular strain. There is a trace amount of fluid in the pericardial sac. Mediastinal space: No mediastinal mass, fluid collection, or pneumomediastinum. Incidental note is made of residual thymic tissue in the anterior mediastinum. Lymph nodes: No enlarged lymph nodes. Bones/joints: There is no fracture or dislocation. No suspicious osteolytic or osteoblastic lesion. Soft tissues: There is accessory breast tissue in the bilateral axillary regions. The breasts are extremely dense. IMPRESSION: 1. No pulmonary embolism in the main or lobar pulmonary arteries. The timing of the contrast bolus was suboptimal for the assessment of the segmental and subsegmental pulmonary arteries, which are poorly opacified. 2. No thoracic aortic aneurysm, pseudoaneurysm, intramural hematoma, penetrating atherosclerotic ulcer, or dissection. 3. Accessory breast tissue in the bilateral axilla. Electronically signed by: Ivan Villegas On 12/06/2020 02:05:05 AM
[2020-12-06 04:27] VITALS: BP 131/79
--- NOTE | 2020-12-06 04:33 | REPVR ---
PROCEDURE INFORMATION: Exam: MR Abdomen Without Contrast Exam date and time: 12/06/2020 2:00 AM Age: 20 years old Clinical indication: Abdominal pain; Generalized; Patient HX: HX gb stones, mrcp; Additional info: R/O choledocolithiasis, elevated lft's, cholelithiasis TECHNIQUE: Imaging protocol: MR of the abdomen without contrast. COMPARISON: GALLBLADDER US 12/06/2020 12:25 AM FINDINGS: Liver: Unremarkable. No mass. Gallbladder and bile ducts: Numerous small layering calculi in the gallbladder. No gallbladder wall thickening or pericholecystic fluid. No biliary duct dilation. No obstructing biliary duct stones. Pancreas: Unremarkable. No ductal dilation. Spleen: Unremarkable. No splenomegaly. Adrenal glands: Unremarkable. No mass. Kidneys and ureters: Unremarkable. No solid mass. No hydronephrosis. Stomach and bowel: Visualized stomach and intestines are unremarkable. Intraperitoneal space: No free fluid. Arteries: No abdominal aortic aneurysm. IMPRESSION: 1. Cholelithiasis. No signs of acute cholecystitis. 2. No biliary duct dilation or obstructing biliary tract calculi. Electronically signed by: Umair Monte On 12/06/2020 04:32:50 AM
[2020-12-06] MEDS ORDERED: OMEP40CA4 PO (04:58)
--- NOTE | 2020-12-07 13:44 | ECGEPIP ---
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
== END 2020-12-06 05:48 | disposition home or self-care (01) ==
LOC: M ED 19:15
DX: K80.20 Calculus of gallbladder without cholecystitis without obstruction (principal); R07.9 Chest pain, unspecified; R74.01 Elevation of levels of liver transaminase levels
CPT/HCPCS: 36415; 71275; 74021; 74181; 76705; 80047; 80076; 81001; 82550; 82553; 83690; 83880; 84436; 84443; 84484; 85025; 85610; 87798; 93005; 93041; 94760; 96374; 96375; 99285; J2270; J2405; Q9967

== ENCOUNTER → 2020-12-16 | Outpatient (CLI) | payer OTHER ==
[~2020-12-16] MED LIST changes: +OMEP40CA4 PO
--- NOTE | 2020-12-17 06:59 | REP ---
INDICATION: 6 WEEKS POST PAR, BLEEDING COMPARISON: None. TECHNIQUE: Transabdominal pelvic ultrasound followed by transvaginal examination for better evaluation of the endometrium and adnexa with color Doppler evaluation of the ovaries. FINDINGS: Bladder is unremarkable and measures 9.9 x 13.8 x 7.7 cm. Normal anteverted uterus measures 9.8 x 4.2 x 7.0 cm. The endometrial complex measures 7.0 mm thickness. No discrete uterine or endometrial abnormalities are appreciated. Bilateral ovaries are normal in appearance and vascularity without evidence for torsion. Right ovary measures 4.3 x 2.1 x 1.7 cm; R I = 0.65. Left ovary measures 2.0 x 2.7 x 3.3 cm; R I = 0.44. No pelvic fluid or adnexal mass lesion. IMPRESSION: Normal pelvic ultrasound. <Electronically signed by Felice Rhodes > 12/17/20 0638
== END ==
LOC: M RAD 14:03
PROVIDERS: ATTEND Nurse Practitioner Women's Health
DX: O99.893 Other specified diseases and conditions complicating puerperium (principal)

== ENCOUNTER 2021-01-10 01:27 | Inpatient (IN) | payer OTHER ==
[~2021-01-10] VITALS: Ht 167.6 cm; Wt 77.3 kg
--- OUTSIDE RECORDS SUMMARY | 2021-01-10 01:34 | CCD | Continuity of Care Document ---
Author Author Quincy JACKSON MD Organization Unknown Address [address] [facility] [address] [place] [address] Phone [phone] Care Team Providers Care Staff Psychiatrist Name Role Phone Catracho Patten MD AUTM Unavailable Alexis Henderson D.O. AUTM Unavailable Luci Tineo Provider AUTM [phone] Problems Active Problems Provider Date Essential hypertension Manan Jackson MD Onset: 021 Social History Type Date Description Comments Sex Unknown ETOH Use 1 A Week Recreational Drug Use Denies Drug Use Tobacco Use Start: Unknown Denies Smoking Allergies, Adverse Reactions, Alerts Active Allergies Criticality Reaction | Severity Comments Date Phenazocine Unable to assess criticality Hives, Tongue swelling 02/28/2019 Nitrofurantoin Unable to assess criticality Hives, Tongue swelling 02/28/2019 Medications Active Medications SIG Qnty Indications Ordering Provide r Date Cymbalta 30mg Caps DR Rendon 1 by mouth every day Unknown Cymbalta 60mg Caps DR Rendon take one capsule by mouth once a day Unknown Complete 14-0.4mg Tablets 1 qd Unknown Immunizations Description No Information Available Vital Signs Date Vital Result Comment 12/16/2020 10:08am BP Systolic 116 mmHg BP Diastolic 80 mmHg Heart Rate 97 /min Body Temperature 97.8 F Height 66 inches 5'6" Weight 168.00 lb BMI (Body Mass Index) 27.1 kg/m2 [place] Body Weight 130 lb Weight 76.205 kg BSA (Body Surface Area) 1.86 m2 05/21/2019 10:32am Height 66 inches 5'6" Weight 140.00 lb BMI (Body Mass Index) 22.6 kg/m2 [place] Body Weight 130 lb Weight 63.504 kg BSA (Body Surface Area) 1.72 m2 Results Description No Information Available Procedures Description No Information Available Medical Devices Description No Information Available Encounters Description No Information Available Assessments Description No Information Available Plan of Treatment No Information Available Functional Status Description No Information Available Mental Status Description No Information Available Referrals Refer to Reason for Referral Status Appt Date Manan Jackson MD CHOLELITHIAISIS Scheduled [address] [place] [address] [phone]
--- OUTSIDE RECORDS SUMMARY | 2021-01-10 01:34 | CCD ---
Author Author [facility] Organization [facility] Address Unknown Phone Unavailable Care Team Providers Care Collar Feller Name Role Phone NO, PCP Unavailable Unavailable Brennan SÁNCHEZ MD Unavailable Unavailable Brennan SÁNCHEZ MD Unavailable Unavailable Brennan SÁNCHEZ MD Unavailable Unavailable Brennan SÁNCHEZ MD Unavailable Unavailable Brennan SÁNCHEZ MD Unavailable Unavailable Brennan SÁNCHEZ MD Unavailable Unavailable Brennan SÁNCHEZ MD Unavailable Unavailable Brennan SÁNCHEZ MD Unavailable Unavailable Brennan SÁNCHEZ MD Unavailable Unavailable Brennan SÁNCHEZ MD Unavailable Unavailable Brennan SÁNCHEZ MD Unavailable Unavailable Brennan SÁNCHEZ MD Unavailable Unavailable Brennan SÁNCHEZ MD Unavailable Unavailable Brennan SÁNCHEZ MD Unavailable Unavailable Brennan SÁNCHEZ MD Unavailable Unavailable Brennan SÁNCHEZ MD Unavailable Unavailable Brennan SÁNCHEZ MD Unavailable Unavailable Brennan SÁNCHEZ MD Unavailable Unavailable Brennan SÁNCHEZ MD Unavailable Unavailable Brennan SÁNCHEZ MD Unavailable Unavailable Brennan SÁNCHEZ MD Unavailable Unavailable Brennan SÁNCHEZ MD Unavailable Unavailable Brennan SÁNCHEZ MD Unavailable Unavailable Brennan SÁNCHEZ MD Unavailable Unavailable BARAYUGA, B CHAU PANG Unavailable Unavailable BARAYUGA, B CHAU PANG Unavailable Unavailable BARAYUGA, B CHAU PANG Unavailable Unavailable BARAYUGA, B CHAU PANG Unavailable Unavailable BARAYUGA, B CHAU Unavailable Unavailable BARAYUGA, B CHAU Unavailable Unavailable BARAYUGA, B CHAU PANG Unavailable Unavailable BARAYUGA, B CHAU MD Unavailable Unavailable BARAYUGA, B CHAU Unavailable Unavailable BARAYUGA, B CHAU MD Unavailable Unavailable BARAYUGA, B CHAU PANG Unavailable Unavailable GORING, C SAKSHI Unavailable Unavailable Re-disclosure Warning The records that you are about to access may contain information from federally-assisted alcohol or drug abuse programs. If such information is present, then the following federally mandated warning applies: This information has been disclosed to you from records protected by federal confidentiality rules (42 CFR part 2). The federal rules prohibit you from making any further disclosure of this information unless further disclosure is expressly permitted by the written consent of the person to whom it pertains or as otherwise permitted by 42 CFR part 2. A general authorization for the release of medical or other information is NOT sufficient for this purpose. The Federal rules restrict any use of the information to criminally investigate or prosecute any alcohol or drug abuse patient.The records that you are about to access may contain highly sensitive health information, the redisclosure of which is protected by Article 27-F of the [facility] Public Health law. If you continue you may have access to information: Regarding HIV / AIDS; Provided by facilities licensed or operated by the [facility] Office of Mental Health; or Provided by the [facility] Office for People With Developmental Disabilities. If such information is present, then the following [facility] mandated warning applies: This information has been disclosed to you from confidential records which are protected by state law. State law prohibits you from making any further disclosure of this information without the specific written consent of the person to whom it pertains, or as otherwise permitted by law. Any unauthorized further disclosure in violation of state law may result in a fine or senior living sentence or both. A general authorization for the release of medical or other information is NOT sufficient authorization for further disc losure. Allergies and Adverse Reactions Type Description Substance Reaction Status Data Source(s ) No Known Environmental Allergies No Known Environmental Al lergies [facility] No Known Food Allergies No Known Food Allergies [facility] Drug allergy NITROFURANTOIN NITROFURANTOIN [facility] Drug allergy PHENAZOPYRIDINE PHENAZOPYRIDINE [facility] Encounters Encounter Providers Location Date Indications Data Source(s ) Outpatient Attender: CHAU Howe/Yajaira/Sahil/ Reintheodore 12/16/2020 10:00:00 AM EDT [facility] Outpatient Attender: SAKSHI Bouchersultant: PCP NO 01/20/2020 08:23:44 AM EST - 01/20/2020 02:32:00 PM [facility] Patient discharged. Outpatient Attender: SAKSHI Sanchezltant: PCP NO 01/20/2020 07:35:04 AM EST - 01/21/2020 10:25:00 AM [facility] Patient discharged. Medications No Information Insurance Providers Payer name Policy type / Coverage type Policy ID Covered libertarian ID Covered libertarian's relationship to lugo Policy Lugo Plan Information [facility] [id number] HU2 [id number] [facility] - O/P [id number] 01 [id number] Problems, Conditions, and Diagnoses Code Display Name Description Problem Type Effective Dates Data Source(s) M2011 Hallux valgus (acquired), right foot Hallux valg us (acquired), right foot Diagnosis 01/21/2020 06:30:00 AM [facility] [id number] Encounter for other preprocedural examin ation Encounter for other preprocedural examination Diagnosis 01/20/2020 01:58:00 PM [facility] [id number] Essential hypertension Essential hypertension Problem 12/16/2020 12:00:00 AM EDT [facility] ([facility], ) Surgeries/Procedures Procedure Description Date Indications Data Source(s) OFFICE OUTPATIENT NEW 45 MINUTES 12/16/2020 12:00:00 A M EDT [facility] ([facility]) Results ID Date Data Source [id number] 12/05/2020 10:05:00 PM EDT [facility] Name Value Range Interpretation Code Description Data Sue rce(s) Supporting Document(s) SARS-CoV-2 (COVID 19) NEGATIVE - SARS-CoV-2 (COVID19) [facility] This lab was ordered by [facility] a nd reported by [facility]. Procedure Social History No Information Vital Signs ID Date Data Source UNK Name Value Range Interpretation Code Description Data Source(s) Systolic blood pressure 116 mm[Hg] 116 [facility]Hg[facility] Diastolic blood pressure 80 mm[Hg] 80 mm[Hg] [facility] ([facility]) Heart rate 97 /min 97 /min [facility] ([facility]) Body temperature 97.8 [degF] 97.8 [degF] [facility] ([facility]) Body height 66 [in_i] 66 [in_i] [facility] ([facility]) 5'6" Body weight 168.00 [lb_av] 168.00 [lb_av] [facility] ([facility]) Body mass index (BMI) [Ratio] 27.1 kg/m2 27.1 k g/m2 [facility] ([facility]) [place] body weight 130 [lb_av] 130 [lb_av] [facility] ([facility]) Body weight 76.205 kg 76.[address] [facility] ([facility]) Body surface area Derived from formula 1.86 m2 1.[address] [facility] ([facility]) ID Date Data Source [id number] 01/27/2020 11:18:07 AM EST [facility] Name Value Range Interpretation Code Description Data Source(s) WEIGHT RECORDED 155.00 pounds 155.00 pounds [facility] Height 66 Inches 066 Inches [facility]
--- OUTSIDE RECORDS SUMMARY | 2021-01-10 01:34 | CCD | Continuity of Care Document ---
Author Author Quincy JACKSON MD Organization Unknown Address [address] [facility] [address] [place] [address] Phone [phone] Care Team Providers Care Salon Shampoo Assistant Name Role Phone Catracho Patten MD AUTM Unavailable Alexis Henderson D.O. AUTM Unavailable Luci Tineo Provider AUTM [phone] Problems Active Problems Provider Date Essential hypertension Manan Jackson MD Onset: 021 Social History Type Date Description Comments Sex Unknown ETOH Use 1 A Week Recreational Drug Use Denies Drug Use Tobacco Use Start: Unknown Denies Smoking Allergies and adverse reactions Active Allergies Criticality Reaction | Severity Comments [...] lb BMI (Body Mass Index) 27.1 kg/m2 [place] Body Weight 130 lb Weight 76.205 kg BSA (Body Surface Area) 1.86 m2 05/21/2019 10:32am Height 66 inches 5'6" Weight 140.00 lb BMI (Body Mass Index) 22.6 kg/m2 [place] Body Weight 130 lb Weight 63.504 kg BSA (Body Surface Area) 1.72 m2 Results Description No Information Available Procedures Date Code Description Status 12/16/2020 87599 Office/Outpatient New Moderate M DM 45-59 Minutes Completed Medical Devices Description No Information Available Encounters Type Date Location Provider Dx Diagnosis Office Visit 12/16/2020 10:00a [facility] Jalen Jackson MD K80.20 Calculus of gallbladder w/o cholecystitis w/o obstruction Assessments Date Code Description Provider 12/16/2020 K80.20 Calculus of gallbladder without cholecystitis or cholangitis Manan Jackson MD Plan of Treatment Future Appointment(s):* 01/24/2021 9:30 am - HELEN Ruiz at [facility] * 01/11/2021 12:00 pm - Manan Jackson MD at [facility] 12/16/2020 - Manan Jackson MD* K80.20 Calculus of gallbladder without cholecystitis or cholangitis* Comments:* Patient has been reporting biliary colic attacks, may have had transient passage of gallstones with the biliary tree on recent ER presentation though her imaging studies especially that of the MRCP was not able to catch this. Given her symptoms, she would benefit from laparoscopic cholecystectomy.I will schedule her for robotic assisted laparoscopic cholecystectomy. We will use ICG and firefly for help with identification of the biliary tree.I discussed with the patient the details of the proposed procedure, the benefits of performing the procedure, the most common risks on doing the procedure. This may include risks of the general anesthesia, risk of laparoscopy including bowel and vascular injury, specific risk for cholecystectomy which includes bile duct injury and bile leakageSpecific to her use of narcotics and breast-feeding as well as anesthesia is breast-feeding. I advised her to store some of her breastmilk for later on use especially in the immediate perioperative period. I advised her not to breast-feed within 24 hours after anesthesia and if she is taking or requiring narcotics afterwards. Advised her to primarily use Tylenol or Motrin afterwards so she could breast-feed without any concerns about medications being secreted to her breastmilk.All her questions or concerns addressed. Patient consented to the procedure. She is otherwise healthy and does not need extensive preoperative work-up. Functional Status Description No Information Available Mental Status Description No Information Available Referrals Refer to Dr Reason for Referral Status Appt Date Manan Jackson MD CHOLELITHIAISIS Scheduled [address] [address] [phone]
[2021-01-10] MEDS ORDERED: ACET-841 PO (01:37)
--- OUTSIDE RECORDS SUMMARY | 2021-01-10 04:46 | CCD ---
Author Author [facility] Organization [facility] Address Unknown Phone Unavailable Care Team Providers Care Business Information Analyst Name Role Phone NO, PCP Unavailable Unavailable Brennan SÁNCHEZ MD Unavailable Unavailable Brennan SÁNCHEZ MD Unavailable Unavailable Brennan SÁNCHEZ MD Unavailable Unavailable Brennan SÁNCHEZ MD Unavailable Unavailable Brennan SÁNCHEZ MD Unavailable Unavailable Brennan SÁNCHEZ MD Unavailable Unavailable Brennan SNÁCHEZ MD Unavailable Unavailable Brennan SÁNCHEZ MD Unavailable [...] Unavailable Brennan SÁNCHEZ MD Unavailable Unavailable Brennan SÁNHCEZ MD Unavailable Unavailable Brennan SÁNCHEZ MD Unavailable [...] is protected by Article 27-F of the [facility] Public Health law. If you continue you may have access to information: Regarding HIV / AIDS; Provided by facilities licensed or operated by the [facility] Office of Mental Health; or Provided by the [facility] Office for People With Developmental Disabilities. If such information is present, then the following [facility] mandated warning applies: This information has been [...] law may result in a fine or prison sentence or both. A general authorization for the release of medical or other information is NOT sufficient authorization for further disc losure. Allergies and Adverse Reactions Type Description Substance Reaction Status Data Source(s ) No Known Environmental Allergies No Known Environmental Al lergies [facility] No Known Food Allergies No Known Food Allergies [facility] Drug allergy NITROFURANTOIN NITROFURANTOIN [facility] Drug allergy PHENAZOPYRIDINE PHENAZOPYRIDINE [facility] Encounters Encounter Providers Location Date Indications Data Source(s ) Outpatient Attender: CHAU Howe/Yajaira/Sahil/ Reintheodore 12/16/2020 10:00:00 AM EDT [facility] ([facility]) Outpatient Attender: SAKSHI Bouchersultant: PCP NO 01/20/2020 08:23:44 AM EST - 01/20/2020 02:32:00 PM [facility] Patient discharged. Outpatient Attender: SAKSHI Sanchezltant: PCP NO 01/20/2020 07:35:04 AM EST - 01/21/2020 10:25:00 AM [facility] Patient discharged. Medications No Information Insurance Providers Payer name Policy type / Coverage type Policy ID Covered green party ID Covered green party's relationship to lugo Policy Lugo Plan Information [facility] [id number] HU2 [id number] [facility] - O/P [id number] 01 [id number] Problems, Conditions, and Diagnoses Code Display Name Description Problem Type Effective Dates Data Source(s) M2011 Hallux valgus (acquired), right foot Hallux valg us (acquired), right foot Diagnosis 01/21/2020 06:30:00 AM [facility] [id number] Encounter for other preprocedural examin ation Encounter for other preprocedural examination Diagnosis 01/20/2020 01:58:00 PM [facility] [id number] Essential hypertension Essential hypertension Problem 12/16/2020 12:00:00 AM EDT [facility] ([facility], ) Surgeries/Procedures Procedure Description Date Indications Data Source(s) OFFICE OUTPATIENT NEW 45 MINUTES 12/16/2020 12:00:00 A M EDT [facility] ([facility]) Results ID Date Data Source [id number] 12/05/2020 10:05:00 PM EDT [facility] Name Value Range Interpretation Code Description Data Sue rce(s) Supporting Document(s) SARS-CoV-2 (COVID 19) NEGATIVE - SARS-CoV-2 (COVID19) [facility] This lab was ordered by [facility] a nd reported by [facility]. Procedure Social History No Information Vital Signs ID Date Data Source UNK Name Value Range Interpretation Code Description Data Source(s) Systolic blood pressure 116 mm[Hg] 116 mm[Hg] [place]) Diastolic blood pressure 80 mm[Hg] 80 mm[Hg] [facility] ([facility]) Heart rate 97 /min 97 /min [facility] ([facility]) Body temperature 97.8 [degF] 97.8 [degF] [facility] ([facility]) Body height 66 [in_i] 66 [in_i] [facility] ([facility]) 5'6" Body weight 168.00 [lb_av] 168.00 [lb_av] [facility] ([facility]) Body mass index (BMI) [Ratio] 27.1 kg/m2 27.1 k g/m2 [facility] ([facility]) [place] body weight 130 [lb_av] 130 [lb_av] [facility] ([facility]) Body weight 76.205 kg 76.205 kg [facility] ([facility]) Body surface area Derived from formula 1.86 m2 1.86 m2 [facility] ([facility]) ID Date Data Source [id number] 01/27/2020 11:18:07 AM EST [facility] Name Value Range Interpretation Code Description Data Source(s) WEIGHT RECORDED 155.00 pounds 155.00 pounds [facility] Height 66 Inches 066 Inches [facility]
[2021-01-10 05:22] LABS: BASO % 0.7 % (0.0-1.0); EOS % 0.2 % (0.0-3.0); HEMATOCRIT 35.3 % (36.0-47.0); HEMOGLOBIN 11.3 g/dl (12.0-15.5); LYMPH # 1.2 10^3/uL (1.5-5.0); LYMPH % 27.4 % (24.0-44.0); MEAN CORPUSCULAR HEMOGLOBIN 29.2 pg (27.0-33.0); MEAN CORPUSCULAR VOLUME 91.2 fl (80.0-96.0); MONO # 0.6 10^3/uL (0.0-0.8); MONO % 13.6 % (2.0-8.0); NEUTROPHILS # 2.4 10^3/uL (1.5-8.5); NEUTROPHILS % 57.9 % (36.0-66.0); PLATELET COUNT, AUTOMATED 281 10^3/uL (150-450); RED BLOOD COUNT 3.87 10^6/uL (4.00-5.40); WHITE BLOOD COUNT 4.2 10^3/uL (4.0-10.0)
[2021-01-10 05:50] LABS: HCG, SERUM QUALITATIVE NEGATIVE (NEGATIVE)
[2021-01-10] MEDS ORDERED: ONDANSETRON 4MG/2ML VIAL IV ONE (06:10)
[2021-01-10] MEDS ORDERED: KETOROLAC 30 MG/ML 1ML VIAL IV ONE (06:10)
[2021-01-10] MEDS ORDERED: NS 1,000 ML IV ONE (06:10)
[2021-01-10 06:18] LABS: ALBUMIN 0.7 GM/DL (3.2-5.2); ALT/SGPT 53 U/L (12-78); AMYLASE 36 U/L (25-115); BILIRUBIN,DIRECT 0.1 MG/DL (0.0-0.2); BILIRUBIN,TOTAL 0.5 MG/DL (0.2-1.0); BLOOD UREA NITROGEN 7 MG/DL (7-18); CALCIUM LEVEL 8.9 MG/DL (8.5-10.1); CARBON DIOXIDE LEVEL 15 MEQ/L (21-32); CHLORIDE LEVEL 109 MEQ/L (98-107); CREATININE FOR GFR 0.63 MG/DL (0.55-1.30); GLOMERULAR FILTRATION RATE > 60.0 (>60); GLUCOSE, FASTING 103 MG/DL (70-100); LIPASE 32 U/L (73-393); POTASSIUM SERUM 3.8 MEQ/L (3.5-5.1); SODIUM LEVEL 141 MEQ/L (136-145)
--- NOTE | 2021-01-10 06:39 | REPVR ---
PROCEDURE INFORMATION: Exam: US Abdomen, Limited; Right Upper Quadrant Exam date and time: 01/10/2021 5:25 AM Age: 21 years old Clinical indication: Abdominal pain; Acute; Additional info: Right upper quad pain TECHNIQUE: Imaging protocol: US abdomen. Real time ultrasound with image documentation. Limited exam focused on the right upper quadrant. COMPARISON: GALLBLADDER US 12/06/2020 12:25 AM FINDINGS: Liver: Normal. No masses. Gallbladder: Contracted gallbladder. Echogenic shadowing mobile foci likely stones. Questionable pericholecystic trace fluid. Gallbladder wall thickness is normal measuring 2.6 mm. Common bile duct: Common bile duct is normal measuring 5 mm. Pancreas: Visualized pancreas is unremarkable. Right kidney: Right kidney is unremarkable measuring 13 cm. IMPRESSION: Contracted gallbladder. Echogenic shadowing mobile foci likely stones. Questionable pericholecystic trace fluid. Gallbladder wall thickness is normal measuring 2.6 mm. Electronically signed by: Farrah Lainez On 01/10/2021 06:38:28 AM
[2021-01-10] MEDS ORDERED: PANTOPRAZOLE 40MG VIAL (C9113 PER 1) IV ONE (07:30)
[2021-01-10] MEDS ORDERED: HOME MED LIST COMPLETE! XX SCH (09:10)
[2021-01-10] MEDS ORDERED: MORPHINE 2 MG/ML 1ML VIAL (J2270) IV PRN ×2 (10:35→12:45)
--- OUTSIDE RECORDS SUMMARY | 2021-01-10 10:35 | CCD ---
Author Author [facility] Organization [facility] Address Unknown Phone Unavailable Care Team Providers Care Performance Analyst Name Role Phone NO, PCP Unavailable [...] is protected by Article 27-F of the [facility] Public Health law. If you continue you may have access to information: Regarding HIV / AIDS; Provided by facilities licensed or operated by the [facility] Office of Mental Health; or Provided by the [facility] Office for People With Developmental Disabilities. If such information is present, then the following [facility] mandated warning applies: This information [...] law may result in a fine or intermediate sentence or both. A general authorization for the release of medical or other information is NOT sufficient authorization for further disc losure. Allergies and Adverse Reactions Type Description Substance Reaction Status Data Source(s ) No Known Environmental Allergies No Known Environmental Al lergies [facility] No Known Food Allergies No Known Food Allergies [facility] Drug allergy NITROFURANTOIN NITROFURANTOIN [facility] Drug allergy PHENAZOPYRIDINE PHENAZOPYRIDINE [facility] Encounters Encounter Providers Location Date Indications Data Source(s ) Outpatient Attender: CHAU Howe/Yajaira/Sahil/ Reintheodore 12/16/2020 10:00:00 AM EDT [facility] Outpatient Attender: SAKSHI Bouchersultant: PCP NO 01/20/2020 08:23:44 AM EST - 01/20/2020 02:32:00 PM [facility] Patient discharged. Outpatient Attender: SAKSHI Sanchezltant: PCP NO 01/20/2020 07:35:04 AM EST - 01/21/2020 10:25:00 AM [facility] Patient discharged. Medications No Information Insurance Providers Payer name Policy type / Coverage type Policy ID Covered alliance party ID Covered alliance party's relationship to lugo Policy Lugo Plan Information [facility] [id number] [facility] - O/P [id number] 01 [id number] Problems, Conditions, and Diagnoses Code Display Name Description Problem Type Effective Dates Data Source(s) M2011 Hallux valgus (acquired), right foot Hallux valg us (acquired), right foot Diagnosis 01/21/2020 06:30:00 AM [facility] [id number] Encounter for other preprocedural examin ation Encounter for other preprocedural examination Diagnosis 01/20/2020 01:58:00 PM [facility] [id number] Essential hypertension Essential hypertension Problem 12/16/2020 12:00:00 AM EDT [facility] ([facility], ) Surgeries/Procedures Procedure Description Date Indications Data Source(s) OFFICE OUTPATIENT NEW 45 MINUTES 12/16/2020 12:00:00 A M EDT [facility] ([facility]) Results ID Date Data Source [id number] 12/05/2020 10:05:00 PM EDT [facility] Name Value Range Interpretation Code Description Data Sue rce(s) Supporting Document(s) SARS-CoV-2 (COVID 19) NEGATIVE - SARS-CoV-2 (COVID19) [facility] This lab was ordered by [facility] a nd reported by [facility]. Procedure Social History No Information Vital Signs ID Date Data Source UNK Name Value Range Interpretation Code Description Data Source(s) [facility]stolic blood [facility] 116 mm[Hg] 116 [facility]Hg[facility] Diastolic blood pressure 80 mm[Hg] 80 mm[Hg] [facility] ([facility]) Heart rate 97 /min 97 /min [facility] ([facility]) Body temperature 97.8 [degF] 97.8 [degF] [facility] ([facility]) Body height 66 [in_i] 66 [in_i] [facility] ([facility]) 5'6" Body weight 168.00 [lb_av] 168.00 [lb_av] [facility] Body mass index (BMI) [Ratio] 27.1 kg/m2 27.1 k g/m2 [facility] ([facility]) [place] body weight 130 [lb_av] 130 [lb_av] [facility] Body weight 76.205 kg 76.205 kg [facility] ([facility]) Body surface area Derived from formula 1.86 m2 1.86 m2 [facility] ([facility]) ID Date Data Source [id number] 01/27/2020 11:18:[address] [facility] Name Value Range Interpretation Code Description Data Source(s) WEIGHT RECORDED 155.00 pounds 155.00 pounds [facility] Height [address] [facility]
--- NOTE | 2021-01-10 12:21 | HPEPDOC ---
[facility] Medical History & Physical Date of Admission Jan 10, 2021 Date of Service: Jan 10, 2021 Attending Physician: Ludivina Schaffer MD History and Physical CHIEF COMPLAINT: abdominal pain HISTORY OF PRESENT ILLNESS: 21-year-old female with past medical history depression/anxiety, history of HSV, history of gallstones who presented to [facility] emergency room with a chief complaint of increased abdominal pain. The patient states she has had increased right upper quadrant pain, 10/10 on pain scale, radiating to the right back and right scapula worsened over the past 24 hours. The patient states she normally has intermittent right upper quadrant pain for which he is following with general surgery as outpatient. The patient was scheduled to have an elective cholecystectomy on 01/11/2021. She states with a right upper quadrant pain being severe at home she had associated nausea/vomiting, fever of 102. Patient took Tylenol at home but she states this did not help. She came to the ER for further evaluation after that. In the emergency room, temperature was 100.3, 97% on room air other vital signs stable. Gallbladder ultrasound showed questionable pericholecystic trace fluid, gallstones. Labs appeared unremarkable aside from anion gap of 17 and CO2 of 15. The patient lactic acid was within normal limits. Dr. Jackson, general surgery, was contacted and case was discussed with him. He is familiar with the patient has been seeing her as outpatient. The case was discussed in detail with him. Decision was made to admit under hospitalist service, surgery consult for acute cholecystitis. REVIEW OF SYSTEMS: CONSTITUTIONAL: Denies lack of energy, unexplained weight gain or weight loss, loss of appetite, night sweats EYES: Denies eye drainage, eye pain, visual changes, dry/irritated eye EARS, NOSE, MOUTH, THROAT: Denies difficulty hearing, ringing in ears, mouth sores, loose teeth, sore throat, facial numbness or pain NECK: Denies swollen glands CARDIOVASCULAR: Denies irregular heartbeat, racing heart, chest pains, swelling of feet or legs, pain in legs with walking RESPIRATORY: Denies shortness of breath, night sweats, wheezing, sputum production, oxygen at home, coughing up blood, cough lasting > 1 month GASTROINTESTINAL: Denies aconstipation, bloody stool, diarrhea, heartburn GENITOURINARY: Denies painful urination, bloody urine, frequent urination, urgency, leaking urine, impotence MUSCULOSKELETAL: Denies joint pain, muscle pain, leg swelling INTEGUMENTARY: Denies rash, itching, new skin lesion, change in existing skin lesion, hair loss or increase, breast changes. NEUROLOGICAL: Denies headaches, dizziness, difficulty walking, numbness or tingling PSYCHIATRIC: Denies depression, anxiety, recurrent bad thoughts, mood swings, hallucinations PAST MEDICAL HISTORY: depression/anxiety, history of HSV, history of gallstones PAST SURGICAL HISTORY: Tonsillectomy, bunionectomy right foot FAMILY HISTORY: Motherhypertension. Alive Fatherhypertension. Alive SOCIAL HISTORY: Denies alcohol, smoking, illicit drug use. Lives with her in the local area. Primary care provider is located at [facility]. Surgery provider, Dr. Jackson ALLERGIES: Please see below. HOME MEDICATIONS: Please see below. PHYSICAL EXAMINATION: VS: Stable on RA CONSTITUTIONAL: No acute distress, resting comfortably, AAO x 3 EYES: PERRLA, EOM intact HENT, MOUTH: Normocephalic, atraumatic, moist mucous membranes NECK: SUPPLE, no JVD, no lymphadenopathy, no carotid bruit CV: Regular rate and rhythm, S1S2 normal, no murmurs/rubs/gallops RESPIRATORY: Clear to auscultation bilaterally, no rales/rhonchi/wheezes GI: + nguyen's sign, BS positive in 4 quadrants, soft,nondistended, + guarding, no organomegaly : Deferred MUSCULOSKELETAL: Normal ROM. No cyanosis, clubbing, swelling, joint deformity, extremity edema INTEGUMENTARY: Intact, no rashes, no lesions, no erythema NEUROLOGIC: Cranial Nerves II-XII are intact, no focal deficits PSYCHIATRIC: Mood and affect are normal LABORATORY DATA: Please see below IMAGING: Gallbladder US Contracted gallbladder. Echogenic shadowing mobile foci likely stones. Questionable pericholecystic trace fluid. Gallbladder wall thickness is normal measuring 2.6 mm. ASSESSMENT: 21-year-old female with past medical history depression/anxiety, history of HSV, history of gallstones admitted under hospitalist service, surgery consult for acute cholecystitis. PLAN: Acute cholecystitis -History of gallstones with a prior elective surgery scheduled for 01/11/2021 -Follows with general surgery as outpatient,Dr. Barayuga -Currently clear liquid diet, tylenol PRN, pain control, IV fluids. Nothing by m outh after midnight -OR in the a.m. Depression/anxiety -Stable -C/w home duloxetine etoday DVT prophylaxis -Heparin SC x 1 dose today. -If stay, continue after surgery DISPOSITION: Admitted under medicine service, inpatient. Discharge home when okay with surgery. Vital Signs Vital Signs Date Time Temp Pulse Resp B/P (MAP) Pulse Ox O2 Delivery O2 Flow Rate FiO2 01/10/21 09:30 70 110/60 (77) 97 01/10/21 08:00 Room Air 01/10/21 07:30 18 01/10/21 01:27 100.3 Laboratory Data Labs 24H Laboratory Tests 2 01/10/21 05:07: Immature Granulocyte % (Auto) 0.2, Neutrophils (%) (Auto) 57.9, Lymphocytes (%) (Auto) 27.4, Monocytes (%) (Auto) 13.6H, Eosinophils (%) (Auto) 0.2, Basophils (%) (Auto) 0.7, Neutrophils # (Auto) 2.4, Lymphocytes # (Auto) 1.2L, Monocytes # (Auto) 0.6, Eosinophils # (Auto) 0.0, Basophils # (Auto) 0.0, Nucleated Red Blood Cells % (auto) 0.0, Anion Gap 17H, Glomerular Filtration Rate > 60.0, Lactic Acid Level 1.1, Calcium Level 8.9, Total Bilirubin 0.5, Direct Bilirubin 0.1, Aspartate Amino Transf (AST/SGOT) 38H, Alanine Aminotransferase (ALT/SGPT) 53, Alkaline Phosphatase 94, Total Protein 7.0, Albumin 0.7L, Albumin/Globulin Ratio 0.1L, Amylase Level 36, Lipase 32L, Human Chorionic Gonadotropin, Qual NEGATIVE 01/10/21 07:09: POC Group A Strep Rapid Screen NEGATIVE CBC/BMP Laboratory Tests 01/10/21 05:07 Microbiology Microbiology 01/10/21 Respiratory Virus Panel (PCR) ([facility]) - Final, Complete Home Medications Scheduled Duloxetine HCl (Cymbalta) 20 Mg Capsule.dr, 90 MG PO QHS No.137/Iron/Folic Acd ( Vitamin Tablet) 1 Each Tablet, 1 TAB PO DAILY Scheduled PRN Acetaminophen (Acetaminophen) 500 Mg Tablet, 1,000 MG PO Q6H PRN for PAIN LEVEL 1-4 Allergies Coded Allergies: nitrofurantoin (Verified Allergy, Severe, rash, skin swelling, throat swelling, hives, 12/05/20) phenazopyridine (Verified Allergy, Severe, hives, rash, swelling of skin and throat, 12/05/20) A-FIB/CHADSVASC A-FIB History Current/History of A-Fib/PAF?: No Current PO Anticoag Therapy: No Age/Risk Factor Scoring CHADSVASC: CHADSVASC Response (Comments) Value Age Risk Factor Age < 65 years old 0 Gender Risk Factor Female 1 Hx of CHF No 0 Hx of HTN No 0 Hx of Stroke/TIA/or VTE No 0 Hx of Diabetes No 0 Hx of Vascular Disease No 0 Total 1 Treatment Treatment ordered: Other Other anticoagulant ordered: heparin Ludivina Schaffer MD Jan 10, 2021 12:21
[2021-01-10] MEDS: PIPERACILLIN/TAZOBACTAM SOD 3.375 GM in D5W MINI-BAG PLUS 50 ML IV SCH ×3 (12:27→23:17)
--- NOTE | 2021-01-10 12:30 | CR.PDOC ---
General Surgery Consultation Date of Consultation 01/10/21 History and Physical CONSULT REPORT FOR: Dr. Schaffer (hospitalist service) REASON FOR CONSULTATION: abdominal pain HISTORY OF PRESENT ILLNESS: Patient is known to me. I saw her back in the clinic December 16, 2020 for symptomatic cholelithiasis through her and acute exacerbation after giving for which she was seen in the emergency room on December 06, 2020 and was deemed to be having intermittent biliary colic episode secondary to her cholelithiasis. She is scheduled to have cholecystectomy performed 01/11/2021. She presented early this morning with complaints of about 24-hour history of exacerbated epigastric and right upper quadrant pain associated with nausea and vomiting also noted to have some low-grade fever early this morning. Work-up in the emergency room shows he does not have any leukocytosis. Her liver function test are normal. She has evidence for cholecystitis with small amount of pericholecystic fluid around the gallbladder on ultrasound. She is being admitted under the hospitalist service for treatment of acute cholecystitis. PAST MEDICAL HISTORY: 1. Hypertension. 2. Anxiety 3. Depression PAST SURGICAL HISTORY: INCLUDES: 1. Removal of lipoma from right axilla 2. Tonsillectomy 3. Bunionectomy. ALLERGIES: Please see below. FAMILY HISTORY: No significant history for problems with anesthesia being reported.. HOME MEDICATIONS: Please see below. REVIEW OF SYSTEMS: Patient reports she was doing well after I saw her and was tolerating most foods she has been eating up until yesterday's episode. She has had some mild discomfort but nothing that would last for an hour or so. She is currently breast-feeding. But reports her child can or is able to take formula feeding. She denies any shortness of breath. She denies any chest pains. She denies any dysuria hematuria nocturia. She denies any polyuria polydipsia or polyphagia. She has lost some of her weight. She denies any persistent problems related to her . PHYSICAL EXAMINATION: VITALS SIGNS: Please see below. GENERAL APPEARANCE: Patient seen sitting up on her stretcher, relatively comfortable. Reports her discomfort is about 4 out of 10. When she arrived about 4:00 this morning her pain was 8 out of 10. SKIN: Warm and moist, no jaundice. HEENT: Normocephalic, atraumatic. [place] palpebral conjunctiva, anicteric sclerae. Lips and mucosa appear moist. NECK: Supple, no thyromegaly. No obvious jugular venous distention. LUNGS: Clear to auscultation bilaterally. No wheezing appreciated. HEART: No chest wall abnormalities. Regular rate and rhythm with no murmurs appreciated. ABDOMEN: Abdomen is moderately obese and rounded, nondistended, soft, stretch box tender over the right upper quadrant area on light palpation. . EXTREMITIES: Extremities have no deformities. No edema identified ANCILLARIES:. LABORATORY DATA: Please see below. As mentioned she does not have any leukocytosis, has normal LFTs IMAGING STUDIES:. She had an ultrasound of the gallbladder done during this visit showing evidence for may be beginning early mild cholecystitis with probable or questionable pericholecystic trace fluid. Gallbladder wall thickness is 2.6 mm. Common bile duct is 5 mm. On prior visits she had an abdominal MRI/MRCP performed showing normal anatomy without any evidence for choledocholithiasis. IMPRESSION/PLANS Cholelithiasis with symptomatic biliary colic episodes, probable mild early cholecystitis during this presentation We will keep her original scheduled surgery for robotic assisted laparoscopic cholecystectomy tomorrow. She is admitted under the hospitalist service. Her symptoms have improved and she is able to tolerate clear liquids. We will keep her on clear liquids up until the surgery. Antibiotic coverage for the cholecystitis. She is also currently breast-feeding. We have already discussed the concerns about breast milk and anesthesia as well as possible use of narcotics during her visit in my clinic. She will hold breast-feeding 24 hours post surgery and will limit narcotics. Otherwise she can restart breast-feeding afterwards. Vital Signs Vital Signs Date Time Temp Pulse Resp B/P (MAP) Pulse Ox O2 Delivery O2 Flow Rate FiO2 01/10/21 09:30 70 110/60 (77) 97 01/10/21 08:00 Room Air 01/10/21 07:30 18 01/10/21 01:27 100.3 Laboratory Data Labs 24H Laboratory Tests 2 01/10/21 05:07: Immature Granulocyte % (Auto) 0.2, Neutrophils (%) (Auto) 57.9, Lymphocytes (%) (Auto) 27.4, Monocytes (%) (Auto) 13.6H, Eosinophils (%) (Auto) 0.2, Basophils ( %) (Auto) 0.7, Neutrophils # (Auto) 2.4, Lymphocytes # (Auto) 1.2L, Monocytes # (Auto) 0.6, Eosinophils # (Auto) 0.0, Basophils # (Auto) 0.0, Nucleated Red Blood Cells % (auto) 0.0, Anion Gap 17H, Glomerular Filtration Rate > 60.0, Lactic Acid Level 1.1, Calcium Level 8.9, Total Bilirubin 0.5, Direct Bilirubin 0.1, Aspartate Amino Transf (AST/SGOT) 38H, Alanine Aminotransferase (ALT/SGPT) 53, Alkaline Phosphatase 94, Total Protein 7.0, Albumin 0.7L, Albumin/Globulin Ratio 0.1L, Amylase Level 36, Lipase 32L, Human Chorionic Gonadotropin, Qual NEGATIVE 01/10/21 07:09: POC Group A Strep Rapid Screen NEGATIVE CBC/BMP Laboratory Tests 01/10/21 05:07 Microbiology Microbiology 01/10/21 Respiratory Virus Panel (PCR) ([facility]) - Final, Complete Home Medications Scheduled Duloxetine HCl (Cymbalta) 20 Mg Capsule.dr, 90 MG PO QHS, (Reported) No.137/Iron/Folic Acd ( Vitamin Tablet) 1 Each Tablet, 1 TAB PO DAILY, (Reported) Scheduled PRN Acetaminophen (Acetaminophen) 500 Mg Tablet, 1,000 MG PO Q6H PRN for PAIN LEVEL 1-4, (Reported) Allergies Coded Allergies: nitrofurantoin (Verified Allergy, Severe, rash, skin swelling, throat swelling, hives, 12/05/20) phenazopyridine (Verified Allergy, Severe, hives, rash, swelling of skin and throat, 12/05/20) CHAU SÁNCHEZ MD Jan 10, 2021 12:30
[2021-01-10] MEDS ORDERED: ACETAMINOPHEN TAB 650MG DOSE (2X325MG) PO PRN (12:45)
[2021-01-10 13:00] VITALS: BP 105/72
[2021-01-10] MEDS: NS 1,000 ML IV SCH (13:44)
[2021-01-10] MEDS ORDERED: HEPARIN SOD (PORCINE) 5000UNITS/ML 1ML VIAL/SYRINGE SQ ONE (14:00)
[2021-01-10 14:11] LABS: INR 0.97; PROTHROMBIN TIME 13.3 SECONDS (12.7-14.5)
[2021-01-10 14:12] LABS: PARTIAL THROMBOPLASTIN TIME 35.7 SECONDS (25.9-37.0)
[2021-01-10 20:00] VITALS: BP 119/80
[2021-01-10] MEDS: DULoxetine 30MG CAPSULE (CYMBALTA) PO SCH (20:14)
[2021-01-10 22:00] VITALS: BP 119/80
[2021-01-11] VITALS (7 sets, daily range): BP systolic 106–144; BP diastolic 72–94
[2021-01-11] MEDS: NS 1,000 ML IV SCH ×3 (04:20→20:16)
[2021-01-11] MEDS: PIPERACILLIN/TAZOBACTAM SOD 3.375 GM in D5W MINI-BAG PLUS 50 ML IV SCH ×3 (04:26→17:30)
[2021-01-11] MEDS ORDERED: INFLUENZA QUADRIVALENT PF VACCINE 0.5ML SYRINGE IM ONE (09:00)
--- NOTE | 2021-01-11 15:01 | IPNPDOC ---
Text Note Date of Service The patient was seen on 01/11/21. NOTE SUBJECTIVE: -No acute complaints, NPO pending surgery this morning -Abdominal pain is well controlled OBJECTIVE VS: Stable on RA CONSTITUTIONAL: No acute distress, resting comfortably, AAO x 3 EYES: PERRLA, EOM intact HENT, MOUTH: Normocephalic, atraumatic, moist mucous membranes NECK: SUPPLE, no JVD, no lymphadenopathy, no carotid bruit CV: Regular rate and rhythm, S1S2 normal, no murmurs/rubs/gallops RESPIRATORY: Clear to auscultation bilaterally, no rales/rhonchi/wheezes GI: Continues to have a positive Shin's, otherwise normoactive bowel sound, soft, nondistended, no organomegaly EXT: No extremity edema, WWP INTEGUMENTARY: Intact, no rashes, no lesions, no erythema NEUROLOGIC: Cranial Nerves III-XII are intact, no focal deficits PSYCHIATRIC: Mood and affect are normal LABORATORY DATA: WBC 4.2 hgb 11.3 platelets 281 na 141 K 3.8 Cr 0.63 IMAGING: Gallbladder US Contracted gallbladder. Echogenic shadowing mobile foci likely stones. Questionable pericholecystic trace fluid. Gallbladder wall thickness is normal measuring 2.6 mm. ASSESSMENT: 21-year-old female with past medical history depression/anxiety, history of HSV, history of gallstones admitted under hospitalist service, surgery consult for acute cholecystitis. PLAN: Acute cholecystitis -History of gallstones with a prior elective surgery scheduled for 01/11/2021, is NPO for lap rosa m today with Dr. Jackson -tylenol PRN, IV morphine as needed for severe pain control, empiric pip/tazo, IV fluids. Depression/anxiety -C/w home duloxetine DVT prophylaxis -Heparin SC DISPOSITION: Admitted under medicine service, inpatient. Discharge home when okay with surgery. VS,Fishbone, I+O VS, Fishbone, I+O Vital Signs Date Time Temp Pulse Resp B/P (MAP) Pulse Ox O2 Delivery O2 Flow Rate FiO2 01/11/21 06:00 98.4 71 16 106/72 (83) 98 Room Air I&O- Last 24 Hours up to 6 AM 01/11/21 06:00 Intake Total 1510 ml Balance 1510 ml ROSALVA SOLANO MD Jan 11, 2021 08:55
--- NOTE | 2021-01-11 16:48 | IPNPDOC ---
Text Note Date of Service The patient was seen on 01/11/21. NOTE Patient admitted for acute cholecystitis yesterday with sudden onset of abdominal pain. She reports she feels better today, very minimal discomfort. She has been afebrile since admission. On examination Patient looks a lot more comfortable Abdomen is obese, nondistended soft and nontender Impression and plan Cholelithiasis with acute cholecystitis Patient is originally scheduled for the robotic assisted laparoscopic cholecystectomy today in an outpatient setting. She was admitted yesterday for IV antibiotics. We will proceed with the planned cholecystectomy. VS,Fishbone, I+O VS, Fishbone, I+O Vital Signs Date Time Temp Pulse Resp B/P (MAP) Pulse Ox O2 Delivery O2 Flow Rate FiO2 01/11/21 14:00 98.4 76 18 125/86 (99) 97 Room Air I&O- Last 24 Hours up to 6 AM 01/11/21 06:00 Intake Total 1510 ml Balance 1510 ml CHAU SÁNCHEZ MD Jan 11, 2021 16:48
[2021-01-11] MEDS ORDERED: BUPIVACAINE HCL 0.25% 30ML VIAL As Ordered ONE (18:08)
[2021-01-11] MEDS ORDERED: LIDOCAINE 1% SDV 30ML VIAL As Ordered ONE (18:08)
[2021-01-11] MEDS ORDERED: ZOSYN 3.375GM VIAL (J2543) As Ordered ONE (18:08)
[2021-01-11] MEDS ORDERED: NORCO, ANEXSIA 5/325MG TABLET (HYDROcodone/ACETAMINOPHEN) PO PRN ×2 (18:15)
[2021-01-11] MEDS: MEPERIDINE INJ 25 MG/ML VIAL (J2175) IV PRN ×2 (18:30→18:35)
[2021-01-11] MEDS ORDERED: ONDANSETRON 4MG/2ML VIAL IV PRN (19:15)
[2021-01-11] MEDS ORDERED: LR 1,000 ML IV SCH (19:15)
[2021-01-11] MEDS ORDERED: METOCLOPRAMIDE INJ 10MG/2ML VIAL (J2765 PER 1) IV PRN (19:15)
[2021-01-11] MEDS ORDERED: PERCOCET 5MG/325MG TAB PO PRN (19:15)
[2021-01-11] MEDS: fentaNYL 100 MCG/2 ML INJECTION (J3010) IV PRN ×4 (19:20→19:44)
[2021-01-11] MEDS: KETOROLAC 30 MG/ML 1ML VIAL IV SCH ×2 (19:26→23:45)
[2021-01-11] MEDS: DULoxetine 30MG CAPSULE (CYMBALTA) PO SCH (20:22)
[2021-01-12 00:06] VITALS: BP 121/72
[2021-01-12 01:06] VITALS: BP 125/82
[2021-01-12 05:06] VITALS: BP 127/82
[2021-01-12] MEDS: KETOROLAC 30 MG/ML 1ML VIAL IV SCH ×2 (05:39→12:00)
--- NOTE | 2021-01-12 08:32 | ROOPDOC ---
[facility] Report Of Operation Report of Operation DATE OF PROCEDURE: 01/11/21 PREPROCEDURE DIAGNOSES: Cholelithiasis, acute cholecystitis. POSTPROCEDURE DIAGNOSES: Cholelithiasis with mild acute cholecystitis, full cystic duct obstruction. PROCEDURE PERFORMED: Robotic assisted laparoscopic cholecystectomy with ICG use for biliary tract identification. SURGEON: Manan Jackson MD, PAPERHANGER APPRENTICE: None ANESTHESIA: General endotracheal anesthesia. ESTIMATED BLOOD LOSS: Approximately 20 mL. COMPLICATIONS: None. REMARKS: Patient is a 21-year-old female having intermittent biliary colic episodes from her recent . She is now and she was actually scheduled for an elective cholecystectomy by me but she presented to the emergency room yesterday with sudden onset of severe abdominal pain with evidence of mild acute cholecystitis on imaging. She was admitted for IV antibiotics and she is brought in to the OR today for cholecystectomy. FINDINGS: Relatively thin-walled but distended gallbladder with multiple floating stones. On ICG the gallbladder does not light up consistent with cholecystitis. On dissection there is a stone lodged at the mid cystic duct and the cystic duct distal to this lights up on on firefly likewise the common hepatic and common bile duct courses noted on firefly. SPECIMENS REMOVED: Gallbladder DESCRIPTION OF PROCEDURE: Patient has been receiving Zosyn 3.375 g IV since admission to the hospital for acute cholecystitis. She received her scheduled dose of IV antibiotics perioperatively., 2.5 mg of ICG was given IV in the preop area. She was brought to the operating room, laid supine on the table, compression boots placed for DVT prophylaxis. General endotracheal anesthesia started. Her abdomen then prepped and draped in usual sterile fashion. Surgical timeout was performed prior to confirm right procedure, right patient identification and other necessary information prior to starting surgery. Entry into the abdomen done through an incision below and slightly to the right of the umbilical cleft. A Veress needle was inserted with a controlled fas hion. CO2 insufflation started to pressure 15 mmHg. Using the same incision an 8 mm robotic trochar was placed under direct vision laparoscope. The area underneath the insertion site was inspected and no injury found. She was then placed on a 12 reverse Trendelenburg, t. Under direct vision I placed three more 8 mm trochars along a row level to the camera port site. A transversus abdominis plane block was then performed bilaterally using the lidocaine/marcaine mixture under laparoscopic guidance. 20 mLs of the mixture placed on each side. The da Lizet robot tower was then maneuvered in place and the trochars docked to the robot. After positioning the instruments inside of the abdomen, and scrubbed in to control of the camera and robotic instruments at the surgeon's console while my tmd teacher assistant remains on the field. Operative findings: Liver appears smooth and healthy. The transverse colon is moderately distended initially impeding view of the fundus of the gallbladder. Gallbladder itself is only moderately distended, soft and pliable. Relatively thin-walled. There are floating stones within the gallbladder. On firefly, the gallbladder does not light up consistent with acute cholecystitis. The fundus of the gallbladder was grabbed and elevated superiorly to expose the hepatocystic triangle. Despite the gallbladder not illuminating, the course the course and location of the chd/cbd confirmed visually and with firefly. Dissection was performed above the level of the Rouviere sulcus. I then proc eeded with dissection of the hepatocystic triangle. The peritoneum overlying the area is opened up and dissected free both anteriorly and posteriorly to help with retraction of the gallbladder. The hepatocystic triangle was approached and dissected using hook cautery and firely visualization of the cystic duct. The cystic duct is identified and on firefly the proximal portion of the cystic duct illuminates but the distal half going to the gallbladder does not most likely from an impacted cystic duct stone. The cystic duct was identified coming off from the neck of the gallbladder. This was circumferentially dissected. I extended the dissection well below where the cystic duct illuminates on firefly to get beyond the impacted cystic duct stone. I tried to milk the stone out but it was relatively stuck at that area and could not not get into the gallbladder. The cystic artery was identified in its usual position medially behind a hepatocystic lymph node of Calot. This was similarly circumferentially dissected off surrounding adipose tissue. We continued posterior dissection proximally at the neck of gallbladder to dissect the posterior wall of the gallbladder off the cystic plate until a critical view of safety was achieved whereby only the previously identified duct and artery coursing through the neck the gallbladder(photodocumentation done.) At this point the the cystic artery was most accessible and this was clipped 2 times and divided in between the hemlock clips. After again checking her anatomy and verifying with firely the course of thecystic duct and common bile duct, this was also clipped and divided with 2 clips remaining at the cystic duct stump. I could see a stone on the divided portion of the cystic duct. The rest of the gallbladder was then dissected free of the gallbladder bed using hook cautery. The gallbladder was then placed in an Endo Catch bag and retrie armen outside through the umbilical port site with minimal enlargement of the port site. I closed the defect with 0 Vicryl in a mattress fashion. The clips and liver bed was inspected for bleeding and bile leakage and none found. The abdomen was deflated, The trochars undocked, the robot removed from the field. Rest of the skin incisions closed with 4-0 Monocryl in subcuticular fashion. Dermabond placed to cover the incisions.. Patient was awakened, extubated and brought to recovery room stable. MANAN JACKSON MD Jan 12, 2021 08:32
[2021-01-12 09:06] VITALS: BP 118/68
[2021-01-12] MEDS ORDERED: HYDR-3715 PO (09:47)
--- NOTE | 2021-01-12 19:56 | DS.PDOC ---
Discharge Summary General Date of Admission Jan 10, 2021 at 10:23 Date of Discharge 01/12/2021 Attending Physician: ROSALVA SOLANO MD Discharge Summary PROCEDURES PERFORMED DURING STAY: Lap rosa m by Dr. Jackson on 01/11/2021 ADMITTING DIAGNOSES: Acute cholecystitis DISCHARGE DIAGNOSES: Acute cholecystitis COMPLICATIONS/CHIEF COMPLAINT: Cholelithiasis. HISTORY OF PRESENT ILLNESS: 21-year-old W with past medical history depression/anxiety, history of HSV, history of gallstones who presented to [facility] emergency room with a chief complaint of increased abdominal pain. The patient stated she had increased right upper quadrant pain, 10/10 on pain scale, radiating to the right back and right scapula worsened over 24 hours. The patient stated that she normally has intermittent right upper quadrant pain for which she was following with general surgery as outpatient. The patient was scheduled to have an elective cholecystectomy on 01/11/2021, but the right upper quadrant pain being severe, with associated nausea/vomiting, fever of 102, she decided to present to the [facility] ED. HOSPITAL COURSE: In the emergency room, temperature was 100.3, 97% on room air other vital signs stable. Gallbladder ultrasound showed questionable pericholecystic trace fluid, gallstones. Labs appeared unremarkable aside from anion gap of 17 and CO2 of 15. The patient lactic acid was within normal limits. Dr. Jackson, general surgery, was contacted and case was discussed with him. He was familiar with the patient and had been seeing her as outpatient and he recommended admission to medicine with surgery consulted for acute cholecystitis. She was placed on navid-op zosyn. She had an uneventful lap rosa m on 01/11 and is now being discharged home and will follow up with surgery in 2 weeks and PCP within 7d. DISCHARGE MEDICATIONS: Please see below. ALLERGIES: Please see below. PHYSICAL EXAMINATION ON DISCHARGE: VITAL SIGNS: Please see below. CONSTITUTIONAL: No acute distress, resting comfortably, AAO x 3 EYES: PERRLA, EOM intact HENT, MOUTH: Normocephalic, atraumatic, moist mucous membranes NECK: SUPPLE, no JVD, no lymphadenopathy, no carotid bruit CV: Regular rate and rhythm, S1S2 normal, no murmurs/rubs/gallops RESPIRATORY: Clear to auscultation bilaterally, no rales/rhonchi/wheezes GI: Normoactive bowel sound, soft, nondistended, no organomegaly, mild pain with palpation, surgical sites look clean with small c/d/i dressing. EXT: No extremity edema, WWP INTEGUMENTARY: Intact, no rashes, no lesions, no erythema NEUROLOGIC: Cranial Nerves III-XII are intact, no focal deficits PSYCHIATRIC: Mood and affect are normal LABORATORY DATA: Please see below. IMAGING: Gallbladder US Contracted gallbladder. Echogenic shadowing mobile foci likely stones. Questionable pericholecystic trace fluid. Gallbladder wall thickness is normal measuring 2.6 mm. PROGNOSIS: Good ACTIVITY: As tolerated DIET: regular DISCHARGE PLAN: Home with close PCP and surgical follow up DISPOSITION: 01 Home, Self-Care. DISCHARGE INSTRUCTIONS: Home with close PCP and surgical follow up ITEMS TO FOLLOWUP ON ON OUTPATIENT: Surgery follow up for post lap rosa m follow up PCP follow up DISCHARGE CONDITION: Stable TIME SPENT ON DISCHARGE: 33 minutes. Vital Signs/I&Os Vital Signs Date Time Temp Pulse Resp B/P (MAP) Pulse Ox O2 Delivery O2 Flow Rate FiO2 01/12/21 09:06 98.2 86 16 118/68 (85) 93 Room Air I&O- Last 24 Hours up to 6 AM 01/12/21 06:00 Intake Total 3210 ml Output Total 4410 ml Balance -1200 ml Microbiology Microbiology 01/10/21 Blood Culture - Preliminary, Resulted No Growth after 48 hours. All Specime... 01/10/21 Blood Culture - Preliminary, Resulted No Growth after 48 hours. All Specime... 01/10/21 Respiratory Virus Panel (PCR) (MONY) - Final, Complete Discharge Medications Scheduled Duloxetine HCl (Cymbalta) 20 Mg Capsule.dr, 90 MG PO QHS, (Reported) No.137/Iron/Folic Acd ( Vitamin Tablet) 1 Each Tablet, 1 TAB PO DAILY, (Reported) Scheduled PRN Acetaminophen (Acetaminophen) 500 Mg Tablet, 1,000 MG PO Q6H PRN for PAIN LEVEL 1-4, (Reported) Hydrocodone/Acetaminophen (Hydrocodone-Acetamin 5-325 mg) 1 Each Tablet, 1 TAB PO Q6HP PRN for moderate pain Allergies Coded Allergies: nitrofurantoin (Verified Allergy, Severe, rash, skin swelling, throat swelling, hives, 12/05/20) phenazopyridine (Verified Allergy, Severe, hives, rash, swelling of skin and throat, 12/05/20) ROSALVA SOLANO MD Jan 12, 2021 19:56
== END 2021-01-12 12:08 | disposition home or self-care (01) | DRG 419 ==
LOC: M ED 01:27 → M ED INP 10:23 → ENRESERV 12:40 → M MSPAV 13:29
PROVIDERS: ADMIT Internal Medicine; ATTEND Internal Medicine
PROC: 8E0W4CZ Robotic Assisted Procedure of Trunk Region, Percutaneous Endoscopic Approach (ICD-10-PCS; 2021-01-11)
PROC: BF5 Imaging, Hepatobiliary System and Pancreas, Other Imaging (ICD-10-PCS; 2021-01-11)
PROC: 0FT44ZZ Resection of Gallbladder, Percutaneous Endoscopic Approach (ICD-10-PCS; principal; 2021-01-11 14:05)
DX: K80.11 Calculus of gallbladder with chronic cholecystitis with obstruction (principal); F41.9 Anxiety disorder, unspecified; F32.9 Major depressive disorder, single episode, unspecified; Z79.899 Other long term (current) drug therapy; Z20.822 Contact with and (suspected) exposure to COVID-19